=== PATIENT | female | born 1930 | race Caucasian/White ===

== ENCOUNTER → 2016-07-13 | Outpatient (CLI) | payer MEDICARE, OTHER ==
--- NOTE | 2016-07-13 15:20 | MAM ---
EXAM DESCRIPTION: MAMMO BREAST SCREENING BILATERAL CAD, images were reviewed with CAD technology, R2 computer-aided detection. CLINICAL HISTORY: [facility]. COMPARISON: 2009 and 2013. FINDINGS: Routine views are obtained. Nodular parenchymal pattern with the increased mammographic density. Patient questionnaire does not indicate any prior surgical intervention. Questioned asymmetry/ distortion right breast retroareolar 9 o'clock approximately 7 cm from the nipple. Benign calcifications are present bilaterally. Small nodular density left breast 1-2 o'clock and approximately 6 cm from the nipple.. IMPRESSION: Incomplete study. BIRAD CATEGORY: 0 INCOMPLETE RECOMMENDATIONS: FOLLOW-UP: True lateral view bilaterally with spot compression films in the true lateral and craniocaudal projections. According to the [employer], yearly mammograms are recommended starting at age 40 and continuing as long as a woman is in good health. Any breast change noted on a breast self-exam should be reported promptly to the patient's healthcare provider. Breast MRI is recommended for women with an approximately 20-25% or greater lifetime risk of breast cancer, including women with a strong family history of breast or ovarian cancer and women who have been treated for Hodgkin's disease. Electronically signed by: Na Ramos 07/13/2016 15:19
== END | disposition home or self-care (01) ==
LOC: MAMMO 09:22
PROVIDERS: ATTEND Family Medicine
DX: Z12.31 Encounter for screening mammogram for malignant neoplasm of breast (principal)
CPT/HCPCS: 77067; G0202

== ENCOUNTER → 2016-07-23 | Outpatient (CLI) | payer MEDICARE, OTHER ==
--- NOTE | 2016-07-25 20:11 | MAM ---
EXAM DESCRIPTION: MAMMO BREAST DIAGNOSTIC BILATERAL Images were reviewed with R2 computer-aided detection. CLINICAL HISTORY: Personal history of breast carcinoma status post malignant lumpectomy right breast. Mammographic asymmetry right breast 9o'clock and left breast 1 o'clock. COMPARISON: Screening evaluation 07/2016 FINDINGS: A true lateral view of the right breast with a scar marker in place indicates the region of clinical concern on the right to correspond to the prior lumpectomy. The glandular tissue is nodular in contour with no mammographically suspicious finding otherwise noted. Left breast is evaluated with true lateral and spot compression films. The with PACS system failed prior to this evaluation and evaluation performed with images reviewed at the technologist screen. The interpretation was held until the images could be reviewed with a high definition monitor, patient advised of same. The questioned nodular asymmetry on the left does not persist. The patient has a background nodular parenchymal pattern that appears grossly stable since 2014. IMPRESSION: Benign exam. Nodular parenchymal pattern which on additional evaluation does not demonstrate persistent abnormality. On the right, the radiographic changes correspond to prior lumpectomy site. BIRAD CATEGORY: 2 BENIGN RECOMMENDATION: FOLLOW-UP: Routine annual mammography. Findings and recommendations were communicated to the patient. Had the outcome been different after final review, we told the patient that we would contact her. According to the [employer], yearly mammograms are recommended starting at age 40 and continuing as long as a woman is in good health. Any breast change noted on a breast self-exam should be reported promptly to the patient's healthcare provider. Breast MRI is recommended for women with an approximately 20-25% or greater lifetime risk of breast cancer, including women with a strong family history of breast or ovarian cancer and women who have been treated for Hodgkin's disease. Electronically signed by: Na Ramos 07/25/2016 20:10
== END | disposition home or self-care (01) ==
LOC: MAMMO 15:30
PROVIDERS: ATTEND Family Medicine
DX: R92.8 Other abnormal and inconclusive findings on diagnostic imaging of breast (principal)
CPT/HCPCS: 77065; G0204

== ENCOUNTER → 2016-08-20 | Outpatient (CLI) | payer MEDICARE, OTHER | END | disposition home or self-care (01) | LOC: GMAL 11:32 | PROVIDERS: ATTEND Family Medicine | DX: E55.9 Vitamin D deficiency, unspecified (principal) ==

== ENCOUNTER → 2016-08-31 | Outpatient (CLI) | payer MEDICARE, OTHER ==
--- NOTE | 2016-08-31 14:32 | MRI ---
EXAM DESCRIPTION: Brain w/oContrast CLINICAL HISTORY: ALTERED MENTAL STATUS memory loss COMPARISON: None TECHNIQUE: Multiplanar, multi sequence MR images of the head are obtained without IV gadolinium contrast using standard imaging protocol. FINDINGS: The midline structures are not displaced. Sulci are age appropriate. The lateral, third, and fourth ventricles are normal in size, shape, and anatomic positioning. Normal goodwin-white differentiation is seen. Normal flow voids are seen in the major intracranial vessels including the dural venous sinuses. There is no evidence of mass, mass effect, hydrocephalus, or acute intracranial hemorrhage. No abnormal extra-axial fluid collections are seen. Mild scattered foci of increased FLAIR/T2 signal are seen in the periventricular white matter and white matter of the centrum semiovale. No diffusion-weighted signal abnormalities are seen. There is an area of mildly increased signal on FLAIR weighted sequences only involving the inferior left brachium pontis to cerebellopontine angle. No abnormal signal is seen in this region on other T1 or T2 weighted imaging series. Likely imaging artifact on the FLAIR sequences. The pituitary is unremarkable. There is a 14 mm fluid signal mucous retention cyst in the anterior right maxillary sinus. Small amount of fluid in the inferior right mastoid air cells is seen. The visualized orbits and mastoid air cells are unremarkable. IMPRESSION: Age-appropriate atrophy with mild old small vessel ischemic type changes are seen. No MRI evidence of acute intracranial ischemia, hemorrhage, or mass effect. Mild right mastoid effusion. Mild right maxillary subacute chronic sinus disease. Electronically signed by: Jimmy Norman MD 08/31/2016 2:31 PM CDT
== END ==
LOC: MRI 09:20
PROVIDERS: ATTEND Family Medicine
DX: R41.82 Altered mental status, unspecified (principal); J32.0 Chronic maxillary sinusitis

== ENCOUNTER → 2016-09-17 | Outpatient (CLI) | payer MEDICARE, OTHER | LOC: LAB.O 13:23 | PROVIDERS: ATTEND Psychiatry & Neurology Neurology | DX: M45.0 Ankylosing spondylitis of multiple sites in spine (principal); D86.9 Sarcoidosis, unspecified; I67.9 Cerebrovascular disease, unspecified; K50.90 Crohn's disease, unspecified, without complications; M35.1 Other overlap syndromes; M81.8 Other osteoporosis without current pathological fracture; M35.3 Polymyalgia rheumatica; M33.22 Polymyositis with myopathy; G61.81 Chronic inflammatory demyelinating polyneuritis; M54.16 Radiculopathy, lumbar region; I73.00 Raynaud's syndrome without gangrene; G25.89 Other specified extrapyramidal and movement disorders; M06.9 Rheumatoid arthritis, unspecified; M35.00 Sjogren syndrome, unspecified; M32.10 Systemic lupus erythematosus, organ or system involvement unspecified; M31.6 Other giant cell arteritis; I77.9 Disorder of arteries and arterioles, unspecified; R41.3 Other amnesia ==

== ENCOUNTER → 2016-10-13 | Outpatient (CLI) | payer MEDICARE, OTHER | END | disposition home or self-care (01) | LOC: GMAL 14:57 | PROVIDERS: ATTEND Family Medicine | DX: E03.8 Other specified hypothyroidism (principal) ==

== ENCOUNTER → 2016-11-06 | Outpatient (CLI) | payer MEDICARE, OTHER ==
--- NOTE | 2016-11-06 09:16 | CT ---
Procedure: CT ABDOMEN PELVIS WITHOUT THEN WITH IV CONTRAST Exam Date: 11/06/2016 8:27 AM CDT Ordering Provider: NATALIE KASPER Clinical Indication: GENERALIZED ABDOMINAL PAIN Comparison: None TECHNIQUE: The abdomen and pelvis were scanned utilizing a multidetector helical scanner from the diaphragm to the lesser trochanter without and with contrast. Oral contrast was given. Low osmolar IV contrast was given. Coronal and sagittal reformations were obtained. DISCUSSION: LOWER THORAX: Mild bilateral lower lobe subsegmental atelectasis is present. HEPATOBILIARY: Gallbladder surgically absent. No intrahepatic biliary ductal dilatation is present. SPLEEN: No splenomegaly. PANCREAS: No focal masses or ductal dilatation. ADRENALS: No adrenal nodules. KIDNEYS/URETERS: Subcentimeter simple cyst is seen arising from the upper pole of the right kidney. It is partially exophytic. There is mild to moderate left hydronephrosis and left hydroureter with relatively tapered and normal caliber of the mid and distal ureter. No obstructing stone is present. PELVIC ORGANS/BLADDER: The uterus appears to be partially absent. The bladder is decompressed. PERITONEUM / RETROPERITONEUM: No free air or fluid. LYMPH NODES: No lymphadenopathy. VESSELS: Unremarkable. GI TRACT: A small sliding-type hiatal hernia is present. The distal jejunal and proximal ileal loops appear to be filled with fluid and mildly prominent. There is present within the colon. There is extensive descending and sigmoid diverticulosis without evidence of diverticulitis. BONES AND SOFT TISSUES: No acute abnormality. Fat-containing ventral abdominal hernia is present. A small lipoma measuring up to 3-4 cm is seen in the right external oblique muscle. IMPRESSION: 1. Mildly fluid-filled and prominent appearance of the distal jejunum and proximal ileum. There is however presence of air within the colon. Findings may be related to partial small bowel obstruction. Recommend follow-up with serial KUBs. 2. Mild to moderate left hydroureteronephrosis with relatively normal caliber to the left mid and distal ureter. No radiopaque obstructing stone is present. Findings may be related to presence of a stricture. Consider urologic consultation. 3. Severe colonic diverticulosis without evidence of diverticulitis. 4. Prior cholecystectomy. 5. Small sliding-type hiatal hernia. 6. Other nonemergent findings, as described. Electronically signed by: Luis Zimmer MD 11/06/2016 9:15 AM CDT
== END | disposition home or self-care (01) ==
LOC: CT 08:16
PROVIDERS: ATTEND Family Medicine
DX: R10.84 Generalized abdominal pain (principal)

== ENCOUNTER → 2016-11-18 | Outpatient (CLI) | payer MEDICARE, OTHER | LOC: LAB.O 15:37 | PROVIDERS: ATTEND Urology | DX: R31.9 Hematuria, unspecified (principal) ==

== ENCOUNTER 2017-02-02 14:08 | Observation (INO) | payer MEDICARE, OTHER ==
--- NOTE | 2017-02-02 15:02 | ED.PDOC ---
History of Present Illness - General Chief Complaint: Neuro Symptoms/Deficits Stated Complaint: does not feel well Time Seen by Provider: 02/02/17 14:59 Source: patient, family Exam Limitations: no limitations - History of Present Illness Initial Comments: PT BROUGHT IN BY EMS AFTER HAVING A NEAR SYNCOPAL EPISODE AT HOME WHILE SITTING IN A CHAIR. PT HAS NO RECOLLECTION OF THE EPISODE AND ONLY COMPLAINS OF PERSISTENT ABDOMINAL PAIN AFTER BEING DIAGNOSED WITH DIVERTICULITIS LAST WEEK AND STARTED ON ANTIBIOTICS BY PCP. PTS STATES THAT PT BECAME PALE, STARTED TO SHAKE AND WOULD NOT RESPOND TO HIM. HE STATES THAT PT NEVER LOST CONSCIOUSNESS AND EYES REMAINED OPEN. Timing/Duration: 1 week Severity: moderate Improving Factors: nothing Worsening Factors: nothing Associated Symptoms: other - ABDOMINAL PAIN Allergies/Adverse Reactions: Allergies Penicillin V [From Pen-Vee-K] Allergy (Unverified 05/28/12 21:37) Home Medications: Ambulatory Orders Fenofibric Acid [Trilipix] 135 mg PO DAILY 08/06/14 Levothyroxine Sodium [Synthroid] 50 mcg PO DAILY 08/06/14 Lisinopril & Hydrochlorothiazi [Lisinopril/Hctz 20-12.5 mg] 1 tab PO BID Pantoprazole Tablet [Protonix] 40 mg PO DAILY 08/06/14 Simvastatin 40 mg PO BEDTIME 08/06/14 Aspirin [(None)] 325 mg PO DAILY 10/18/14 Cranberry (Vaccinium Macrocarp [Cranberry] 250 mg PO DAILY 10/18/14 Cyanocobalamin [Vitamin B12] 1,000 mcg PO DAILY 10/18/14 Krill Oil [Krill Oil 1000 mg] 1 cap PO DAILY 10/18/14 Multiple Minerals W/ Vitamins [Citracal Plus] 1 tab PO DAILY 10/18/14 Multiple Vitamin [Ocuvite] 1 tab PO DAILY 10/18/14 Review of Systems - Review of Systems Constitutional: Denies: chills, fever Respiratory: Denies: cough, short of breath Cardiology: Denies: chest pain, palpitations Gastrointestinal/Abdominal: States: see HPI, abdominal pain Genitourinary: Denies: discharge, dysuria Musculoskeletal: Denies: back pain, joint pain Skin: Denies: dryness, lesions Neurological: States: no symptoms reported Endocrine: States: no symptoms reported Past Medical History (General) - Patient Medical History Hx Congestive Heart Failure: No Hx Hypertension: Yes Hx Diabetes: No Hx Cancer: Yes - Breast Hx Other - free text: DIVERTICULOSIS/DIVERTICULITIS Surgical History: appendectomy, cholecystectomy, Hysterectomy - Vaccination History Hx Influenza Vaccination: No Hx Pneumococcal Vaccination: Yes - Social History Hx Tobacco Use: No Family Medical History - Family History Mother Family History: Unknown Physical Exam - Physical Exam General Appearance: Alert, Comfortable, No apparent distress Ears, Nose, Throat: hearing grossly normal, normal ENT inspection Neck: normal inspection Respiratory: lungs clear, normal breath sounds, no respiratory distress Cardiovascular/Chest: regular rate, rhythm, no murmur Gastrointestinal/Abdominal: soft, tenderness - LLQ Back Exam: normal inspection Extremity: normal inspection Neurologic: alert, normal mood/affect, oriented x 3 Skin Exam: normal color, warm/dry Progress - Progress Progress: 02/02/17 18:08 PT RESTING COMFORTABLY, NO COMPLAINT AT THIS TIME. LABS AND CT FINDINGS DISCUSSED. PT AGREES WITH PLAN TO ADMIT FOR OBSERVATION OVERNIGHT. - Results/Orders Results/Orders: 02/02/17 15:09 Sodium Chloride 0.9% (Flush) [Saline Flush Syringe] 10 ml IV PRN PRN 02/02/17 15:10 Hold Metformin x 48Hrs [id number] 02/02/17 15:15 EKG STAT Laboratory Results - last 24 hr 02/02/17 02/02/17 02/02/17 15:09 15:28 17:56 WBC 7.7 RBC 4.52 Hgb 13.5 Hct 39.7 MCV 87.8 MCH 29.9 MCHC 34.1 RDW 13.6 Plt Count 370 MPV 7.7 Absolute Neuts (auto) 5.80 Absolute Lymphs (auto) 0.90 L Absolute Monos (auto) 0.80 Absolute Eos (auto) 0.20 Absolute Basos (auto) 0.10 Neutrophils % 75.5 Lymphocytes % 11.4 L Monocytes % 10.1 H Eosinophils % 2.0 Basophils % 1.0 Sodium 132 L Potassium 3.4 L Chloride 96 L Carbon Dioxide 25 Anion Gap 14.4 BUN 17 Creatinine 1.18 BUN/Creatinine Ratio 14.4 Random Glucose 114 H Serum Osmolality 266.9 L Calcium 9.6 Total Bilirubin 0.5 Direct Bilirubin 0.2 Indirect Bilirubin 0.3 AST 33 ALT 18 Alkaline Phosphatase 41 L Serum Total Protein 7.6 Albumin 4.1 Urine Color Yellow Urine Appearance Clear Urine pH 7.0 Ur Specific Bowman 1.015 Urine Protein Negative Urine Glucose (UA) Negative Urine Ketones Negative Urine Blood Negative Urine Nitrite Negative Urine Bilirubin Negative Urine Urobilinogen 0.2 Ur Leukocyte Esterase Negative Urine RBC 0 Urine WBC 0 Ur Epithelial Cells 0 Urine Bacteria 0 - EKG/XRAY/CT EKG: Sinus - @74BPM WITH 1ST DEGREE AV BLOCK, LAFB, no ST T wave changes, Unchanged from - 08/06/2014 CT: ABDOMEN/PELVIS CT Ordered: Yes - NO EVIDENCE OF DIVERTICULITIS AT THIS TIME. Departure - Departure Clinical Impression: Abdominal pain, Near syncope Time of Disposition: 18:10 Disposition: Admit Patient Condition: Fair Departure Forms: ED Discharge - Pt. Copy, Patient Portal Self Enrollment Referrals: Russel Mariscal III, MD [Primary Care Provider] - 1-2 Weeks Home Medications: Ambulatory Orders Fenofibric Acid [Trilipix] 135 mg PO DAILY 08/06/14 Levothyroxine Sodium [Synthroid] 50 mcg PO DAILY 08/06/14 Lisinopril & Hydrochlorothiazi [Lisinopril/Hctz 20-12.5 mg] 1 tab PO BID Pantoprazole Tablet [Protonix] 40 mg PO DAILY 08/06/14 Simvastatin 40 mg PO BEDTIME 08/06/14 Aspirin [(None)] 325 mg PO DAILY 10/18/14 Cranberry (Vaccinium Macrocarp [Cranberry] 250 mg PO DAILY 10/18/14 Cyanocobalamin [Vitamin B12] 1,000 mcg PO DAILY 10/18/14 Krill Oil [Krill Oil 1000 mg] 1 cap PO DAILY 10/18/14 Multiple Minerals W/ Vitamins [Citracal Plus] 1 tab PO DAILY 10/18/14 Multiple Vitamin [Ocuvite] 1 tab PO DAILY 10/18/14 Decision To Admit - Decistion To Admit Decision to Admit Reason: Admit from ER - NEAR SYNCOPE, ABDOMINAL PAIN Decision to Admit Date: 02/02/17 Decision to Admit Time: 18:13
[2017-02-02] MEDS ORDERED: ONDANSETRON INJ 4 MG/2 ML VIAL IV ONE (15:09)
[2017-02-02] MEDS ORDERED: SODIUM CHLORIDE 0.9% (FLUSH) 10 ML SYG IV PRN ×2 (15:09→18:51)
[2017-02-02] MEDS ORDERED: SODIUM CHLORIDE 0.9% 1000ML 1,000 ML IVS ONE (15:09)
[2017-02-02] MEDS ORDERED: MORPHINE SULFATE INJ 10 MG/ML VIAL IV ONE (15:11)
--- NOTE | 2017-02-02 16:56 | CT ---
EXAM DESCRIPTION: Abdomen/Pelvis w/Contrast CLINICAL HISTORY: 86 years Female, LLQ ABD PAIN, RECENT DIVERTICULITIS COMPARISON: 06 November 2016 TECHNIQUE: Transaxial images were obtained during injector administered intravenous contrast media and without oral contrast media. Sagittal and coronal reconstruction was performed.This exam was performed according to our departmental dose-optimization program, which includes automated exposure control, adjustment of the mA and/or kV according to patient size and/or use of iterative reconstruction technique. FINDINGS: The lung bases are clear. The liver and spleen are normal in appearance. No biliary ductal dilatation is observed. The gallbladder is been previously removed. Surgical clips are seen in the region of the gallbladder fossa. A small hiatus hernia is observed. No adrenal masses are detected. The pancreas is normal in appearance. Imaging of the kidneys reveals no evidence of hydronephrosis mass or calcification. Simple cysts are detected in the right kidney. Diverticulosis of the sigmoid colon is observed without evidence of diverticulitis. The patient is post hysterectomy. Mild degenerative changes are observed in the lumbar spine. IMPRESSION: 1. Cholecystectomy. 2. Small hiatus hernia. 3. Uncomplicated diverticulosis of the colon. 4. Hysterectomy Electronically signed by: Russel Rosario MD 02/02/2017 4:54 PM CDT
--- NOTE | 2017-02-02 18:35 | HP ---
SUPERVISING PHYSICIAN: Junior Gonzalez MD CHIEF COMPLAINT: Possible seizure. HISTORY OF PRESENT ILLNESS: Ms. Womack is an 86-year-old, female patient that was brought to the Emergency Room by EMS after she had apparently a near syncopal episode at home while sitting in a chair. The patient notes she has full memory of the episode and the only complaint at time of admission to the Emergency Department was some abdominal pain. Of note is that she is being treated currently with antibiotics for diverticulitis to include Levaquin and Flagyl. The patient notes that her abdominal pain is no different than it has been in the past and she feels that she did not have any seizure, just had a mild episode of weakness. The patient's notes that the patient apparently became very pale, started to shake and would not respond to him. He also notes that the patient never lost consciousness and her eyes remained open during the entire episode. On presentation to the Emergency Room, laboratory studies completed showed she had a normal white count with normal differential with chemistries showing a mild hyponatremia with sodium 132 and mild hypokalemia with potassium 3.4. Glucose was 114. Urinalysis was also within normal limits. She then had an CT of the abdomen and pelvis given the abdominal pain which she notes is in the left lower quadrant and, again, is not a significant change from previous weeks and per radiologic interpretation, there was note that she had uncomplicated diverticulosis of the colon, but no evidence of diverticulitis. Dr. Sherwood, Emergency Room physician, requested that the patient be admitted and placed in observation at least for further evaluation given the questionable seizure activity and close monitoring of neurologic status. The patient was placed in observation in stable condition. PAST MEDICAL HISTORY: 1. Hyperlipidemia. 2. Hypertension. 3. Diverticulosis noted by colonoscopy of the descending and sigmoid colon, followed by Dr. Queen. 4. Left lower leg fracture in 2005. 5. Osteopenia. 6. Hypothyroidism on supplementation. 7. History of infiltrating lobular breast carcinoma with the patient having completed radiation therapy as well as excision of the right breast. PAST SURGICAL HISTORY: 1. Appendectomy. 2. Complete hysterectomy. 3. Excision of right breast for invasive lobular carcinoma in 2006. 4. Right knee arthroscopy with right knee arthroplasty in [address] Viera. 5. 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 6. times 2. 7. Last colonoscopy noted to be in [address] Queen with multiple small and large mouth diverticula, rectosigmoid. 8. Echocardiogram in October of 2016 with ejection fraction of 60% with a grade 1 diastolic dysfunction. 9. Cholecystectomy. HOME MEDICATIONS: 1. Metamucil powder pack 1 at bedtime. 2. Aspirin 81 mg daily. 3. Cranberry capsules 250 mg daily. 4. Trilipix 135 mg every other day. 5. Ocuvite 1 tablet daily. 6. Lisinopril/hydrochlorothiazide 20-12.5 mg 1 tablet b.i.d. 7. Synthroid 50 mcg daily. 8. Simvastatin 40 mg at bedtime. 9. Protonix 40 mg daily. ALLERGIES: PENICILLIN, ADHESIVE TAPE, BENZINE, CIPROFLOXACIN. FAMILY HISTORY: Father at age 60 secondary to prostate cancer. Mother at age 99 secondary to advanced age. SOCIAL HISTORY: The patient is retired [employer]. She has four children. She is and lives in [place], [place]. She has never smoked. She does admit that she consumes hard liquor on a daily basis. REVIEW OF SYSTEMS: CONSTITUTIONAL: Denies any fevers, chills, or fatigue, but does note she does not feel well. HEENT: She does note that she has frequent headaches. Denies visual changes, earaches, sore throat. RESPIRATORY: Denies cough, shortness of breath. CARDIOVASCULAR: Denies chest pain or palpitations, but possible near syncopal episode as noted in history of present illness. GASTROINTESTINAL: As noted in history of present illness, left lower quadrant pain which apparently is chronic, currently under treatment by Dr. Mariscal with antibiotics including Levaquin and Flagyl as well as followed by Dr. Queen. GENITOURINARY: Denies discharge, dysuria, hematuria or other urinary symptoms. NEUROLOGIC: As noted in history of present illness, but denies any actual seizure activity, loss of consciousness, any focal weaknesses or sensory deficits. PHYSICAL EXAMINATION: VITAL SIGNS: Temperature 97.3. Pulse 88. Blood pressure 157/83. Respirations 18. O2 saturation 98% on room air. Admission weight 100.9 kg. GENERAL: The patient appears to be comfortable and in no acute distress on admission to the Medical/Surgical Floor. She is alert and oriented times three. HEENT: Tympanic membranes clear bilaterally. Oropharynx is pink, moist without any lesions. NECK: No jugular venous distention noted. Supple with full range of motion. CHEST: Lungs clear to auscultation bilaterally without any rhonchi, wheezes, or rales. CARDIOVASCULAR: Regular rate and rhythm without any appreciable murmurs, gallops, or rubs. ABDOMEN: Soft with notable tenderness to the left lower quadrant on deep palpation. No rebound tenderness. EXTREMITIES: There is no cyanosis, clubbing or edema. NEUROLOGIC: The patient is alert and oriented times three. Facial features are symmetrical. Extraocular movements are within normal limits. There is no nystagmus noted. No ataxia was noted. No sensory or motor deficits were appreciated. LABORATORY: CBC showed normal white count of 7.2, hemoglobin 13.5, hematocrit 39.7, platelet count 370,000, differential within normal limits. Chemistries showed hyponatremia at 132, hypokalemia at 3.4 with BUN 17, creatinine 1.18, glucose 114. Liver functions within normal limits. Urinalysis within normal limits. RADIOLOGY: CT of the abdomen and pelvis with contrast per radiologic interpretation showed note of small hiatal hernia, uncomplicated diverticulosis of the colon without any diverticulitis noted. ASSESSMENT: 1. Possible presyncopal episode with questionable seizure activity with the patient reporting no loss of consciousness and no history of seizure activity. 2. Chronic left lower quadrant abdominal pain secondary to diverticulosis with no evidence of acute diverticulitis on CT scan with the patient currently being treated with Levaquin and Flagyl, 10 day course, currently on day 6. 3. Hypertension. 4. Hyperlipidemia. 5. Hypothyroidism. 6. History of previous right breast cancer with excision of right breast. 7. Electrolyte imbalance with mild hyponatremia and hypokalemia. PLAN: The patient will be placed in observation. She was given some saline in the Emergency Department and this will be continued in efforts to correct the hyponatremia along with IV potassium. We will plan to recheck laboratory studies in the morning. She will be on seizure precautions with frequent neuro checks. She will be on DVT prophylaxis per protocol. We will resume her home medications once they have been updated and verified in the medical records. I have scheduled her for a carotid Doppler study. We will plan to repeat abdominal x-ray in the morning. Her diet will include clear liquids. I will touch base with Dr. Mariscal in the morning in regards to the diverticulosis treatment as she being followed by Dr. Mariscal and Dr. Queen and this appears to be a chronic issue. We will anticipate length of stay to be one to two days with possible discharge tomorrow once clinically stable. Until then, we will continue to monitor the patient closely and treat appropriately. #[id number] [facility]
[2017-02-02] MEDS ORDERED: ONDANSETRON INJ 4 MG/2 ML VIAL IV PRN (18:51)
[2017-02-02] MEDS ORDERED: IV SET AND CAP CHANGE INJ INJ SCH (19:00)
[2017-02-02] MEDS ORDERED: MORPHINE SULFATE INJ 10 MG/ML VIAL IV PRN (21:47)
[2017-02-02] MEDS ORDERED: metroNIDAZOLE IV PREMIX 500MG 100 ML IVPB ONE (22:02)
[2017-02-02] MEDS: KCL 40MEQ/NS 1,000 ML IVS PRN (22:05)
[2017-02-02] MEDS: metroNIDAZOLE IV PREMIX 500MG 500 MG in PREMIX BAG 1 BAG IVPB SCH (22:06)
[2017-02-03] MEDS ORDERED: metroNIDAZOLE IV PREMIX 500MG 100 ML IVPB ONE ×3 (05:42→20:45)
[2017-02-03] MEDS: metroNIDAZOLE IV PREMIX 500MG 500 MG in PREMIX BAG 1 BAG IVPB SCH ×3 (05:44→21:08)
--- NOTE | 2017-02-03 07:51 | RAD ---
Abdomen two views INDICATION: Left lower quadrant pain COMPARISON: October 30, 2014 IMPRESSION: Mild scarring in the lung bases. No evidence of free air. Gallbladder clips right upper quadrant. Slightly dilated small bowel loops in the mid and left lower abdomen nonspecific. Possible localized ileus, enteritis or very low-grade obstruction. Bowel gas is present to the rectum. No definite pneumatosis. Electronically signed by: Cory Ruiz MD 02/03/2017 7:49 AM CDT
[2017-02-03] MEDS ORDERED: MULTIPLE VITAMIN 1 EA TAB PO ONE (07:55)
[2017-02-03] MEDS ORDERED: PANTOPRAZOLE SODIUM TAB 40 MG PO ONE (07:56)
[2017-02-03] MEDS ORDERED: levoFLOXacin 500MG IV 100 ML IVPB ONE (07:56)
[2017-02-03] MEDS ORDERED: hydroCHLOROthiazide 12.5 MG CAP ONE (07:56)
[2017-02-03] MEDS ORDERED: LEVOTHYROXINE SODIUM 0.025 MG TAB ONE (07:58)
[2017-02-03] MEDS: PANTOPRAZOLE SODIUM TAB 40 MG PO SCH (08:35)
[2017-02-03] MEDS: LEVOTHYROXINE SODIUM 0.025 MG TAB PO SCH (08:36)
[2017-02-03] MEDS: hydroCHLOROthiazide 12.5 MG CAP PO SCH ×2 (08:36→21:06)
[2017-02-03] MEDS: MULTIPLE VITAMIN 1 EA TAB PO SCH (08:40)
[2017-02-03] MEDS: LISINOPRIL 10 MG TAB PO SCH ×2 (08:40→21:06)
[2017-02-03] MEDS ORDERED: levoFLOXacin 500MG IV 500 MG in PREMIX BAG 1 BAG IVPB SCH (09:00)
[2017-02-03] MEDS ORDERED: NON-FORMULARY MEDICATION 1 EA MIS (Lisinopril & Hydrochlorothiazi [Lisinopril/Hctz 20-12.5 PO SCH (09:00)
--- NOTE | 2017-02-03 11:35 | PCM.CORE ---
Physician DVT/VTE - Nurse DVT Assessment & Total Each Risk Factor Represents 3 Points: Age over 75 years Each Risk Factor Represents 1 Point: Medical PT at Bed Rest Each Risk Factor is 1 Point: Obesity (BMI >25) DVT Assessment Score: 5 - 5 or more Very High Risk Treatments: Early Ambulation *, Sequential Compression Device Pharmacological: Enoxaparin 40mg SQ Daily
--- NOTE | 2017-02-03 12:03 | CT ---
EXAM DESCRIPTION: Head CT without contrast CLINICAL HISTORY: Seizure COMPARISON: MRI brain 08/31/2016 TECHNIQUE: Noncontrast spiral CT of the brain. This exam was performed according to our departmental dose-optimization program, which includes automated exposure control, adjustment of the mA and/or kV according to patient size and/or use of iterative reconstruction technique FINDINGS: No intracranial hemorrhage, infarction or mass lesion. Normal goodwin-white matter differentiation Ventricles are normal in size and configuration. Atherosclerotic vascular calcifications No calvarial or skullbase fracture. No fluid in the paranasal sinuses or mastoid air cells IMPRESSION: Negative noncontrast head CT CT is insensitive for early evaluation of acute stroke. If there is clinical concern for acute ischemia, an MRI may be considered. Electronically signed by: Junior Collazo MD 02/03/2017 12:02 PM CDT
[2017-02-03] MEDS: KCL 40MEQ/NS 1,000 ML IVS PRN (12:31)
[2017-02-03] MEDS ORDERED: MAGNESIUM HYDROXIDE 30 ML UD PO ONE (13:43)
--- NOTE | 2017-02-03 14:07 | CONS ---
DATE OF CONSULTATION: 02/03/17 REFERRING PHYSICIAN: [facility] service, Dr. Gonzalez and Blayne Dobson. HISTORY OF PRESENT ILLNESS: The patient is an 86-year-old female who was admitted after a possible seizure. At the time of admission, the patient did complain of left lower quadrant pain and has a history of diverticulitis. I was asked to help evaluate for this pain. The patient states she had a problem getting up and that her said she would not respond and had some shaking. She did not have urinary incontinence. PAST MEDICAL HISTORY: 1. Hypertension. 2. Hyperlipidemia. 3. She broke her left leg in 2005. PAST SURGICAL HISTORY: 1. Right mastectomy. 2. Hysterectomy. 3. Appendectomy. 4. Hypothyroidism. 5. Right knee arthroscopy. 6. History of skin cancers. 7. Cholecystectomy. 8. C-sections times . 9. Last colonoscopy was in 2007. CURRENT MEDICATIONS: 1. Metamucil. 2. Aspirin. 3. Cranberry. 4. Trilipix. 5. Ocuvite. 6. Lisinopril/hydrochlorothiazide. 7. Synthroid. 8. Simvastatin. 9. Protonix. ALLERGIES: CIPRO, BENZINE, ADHESIVE TAPE, PENICILLIN. FAMILY HISTORY: Positive for prostate cancer. SOCIAL HISTORY: The patient is retired, mother of four children. She does not smoke, but does drink on a routine basis. REVIEW OF SYSTEMS: Essentially unremarkable. There has been no chest pain or palpitations, but did have the weak episode prior to admission. She does have chronic left lower quadrant pain, but no fever, chills, change in bowel habits. PHYSICAL EXAMINATION: GENERAL: The patient is currently awake, alert, and in mild distress. VITAL SIGNS: The patient is currently afebrile. Blood pressure is somewhat elevated at 153/83. Pulse 70 to 80. Respiratory rate 16. I&Os show good urine output and the patient states she had a stool this morning. LABORATORY: White count 5.6, 62% neutrophils, hemoglobin 12.4, platelet count 335,000. Electrolytes reveal potassium 4, creatinine 0.87. Liver functions within normal limits. Calcium 8.8, blood sugar 102 this morning. Abdominal x- ray is essentially unremarkable. ASSESSMENT: 1. Diverticulosis with probably some obstipation. This could be the cause of the discomfort. 2. Other chronic health issues. 3. Rule out neurologic event. RECOMMENDATION: My recommendation is to give the patient a large dose of Milk of Magnesia, repeat her x-rays in the morning and increase her activity by at least sitting up in the chair. [facility][id number]
--- NOTE | 2017-02-03 14:14 | US ---
EXAM DESCRIPTION: Carotid Duplex CLINICAL HISTORY: near syncopal seizure COMPARISON: None Available. TECHNIQUE: Color Doppler evaluation of the extracranial carotids FINDINGS: Right carotid: Tortuosity of the right common carotid artery seen. There is mild smooth partly calcified plaque of the carotid bulb. Peak systolic velocity common carotid artery = 77 cm/s Peak systolic velocity internal carotid artery = 75 cm/s Peak systolic velocity external carotid artery = 75 cm/s ICA CCA ratio 1.0 Left carotid: Tortuosity of the left common carotid artery is seen. There is mild smooth partly calcified plaque in the left carotid bulb. Peak systolic velocity common carotid artery = 58 cm/s Peak systolic velocity internal carotid artery = 68 cm/s Peak systolic velocity external carotid artery = 81 cm/s ICA CCA ratio 1.0 Antegrade flow is seen in both vertebral arteries Normal flow velocities and waveforms are demonstrated bilaterally. 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 Velocities and ratios suggest less than 39% stenosis of the internal carotid artery bilaterally. Electronically signed by: Jimmy Norman MD 02/03/2017 2:13 PM CDT
[2017-02-03] MEDS: ENOXAPARIN SODIUM 40 MG/0.4 ML SYG SUBCU SCH (14:41)
--- NOTE | 2017-02-03 18:17 | PN ---
DATE: 02/03/17 SUPERVISING PHYSICIAN: Junior Gonzalez M.D. SUBJECTIVE: The patient has not had any episodes of seizure activity or any other syncopal type episodes through the night. She remains afebrile. She says her abdominal pain has lessened somewhat since admission. She has had no nausea. She has been tolerating a clear liquid diet. OBJECTIVE: VITAL SIGNS: T max 98.5, pulse 71, blood pressure 153/83, respirations 16, satting 95% on room air. I's and O's show a positive balance of 300 with 1600 in, 1300 out. Weight is 100.97 kg. CHEST: Lungs are clear to auscultation. HEART: regular rate and rhythm. ABDOMEN: Obese, soft with some continued tenderness towards the left lower quadrant. No rebound tenderness. The patient reports is less in intensity compared to admission. EXTREMITIES: No clubbing, cyanosis or edema. NEUROLOGIC: She is alert and oriented times three. LABORATORY: White count remains within normal limits at 5.6. Hemoglobin 12.4, hematocrit 36.2, platelet count 335,000. Differential is within normal limits. Chemistries show continued hyponatremia with sodium 133, potassium has normalized now at 4.0, BUN 12, creatinine 0.87, blood sugar 102, calcium 8.8. Liver functions remain within normal limits. No microbiology specimens submitted for culture. RADIOLOGY: She had a carotid artery study done this morning and per radiology interpretation there is mild atherosclerotic disease in bilateral carotid bulbs with velocities and ratios to suggest less than 39% stenosis of the internal carotid arteries bilaterally. She also had a head CT without contrast and per radiology interpretation showed a negative contrast head CT. She also had a repeat abdominal x-ray and per radiology interpretation once again there was note of possible localized ileus, enteritis or very low grade obstruction with bowel gas present within the rectum, but no definite pneumatosis. ASSESSMENT: 1. Questionable presyncopal episode versus seizure activity with no reported loss of consciousness prior to admission with the patient having no history of seizure activity and no further neurological changes noted through the night with CT studies and carotid studies showing no significant acute findings. 2. Continued left quadrant abdominal pain with history of diverticulosis likely secondary to obstipation with the patient currently has been treated for diverticulitis with antibiotics to include Levaquin and Flagyl with the patient being on day 7 of antibiotic therapy. 3. Hypertension. 4. Hyperlipidemia. 5. Hypothyroidism. 6. History of previous right breast cancer with excision of the right breast. 7. Electrolytes imbalance with a persistent mild hyponatremia despite fluid replacement. The patient is taking Hydrochlorothiazide which is likely the etiology of the hyponatremia and resolved hypokalemia after fluid replacement. PLAN: The patient was seen in consultation by Dr. Souza with recommendations to give the patient Milk of Magnesia and repeat abdominal x-ray in the morning, and increase activity at least sitting up to the chair. She remains on a clear liquid diet. She has had no seizure activity, therefore will stop seizure precautions. Continue to monitor closely. Anticipate discharge tomorrow hopefully after further evaluation by Dr. Souza as well as repeat abdominal films. Will plan to repeat a BNP in the morning. Continue with IV fluids in efforts to normalize sodium levels, although it is noted that the patient is on Hydrochlorothiazide which is likely the etiology of the hyponatremia. Will anticipate discharge later tomorrow after further assessment. Until then, continue to monitor closely and treat appropriately. #[id number] [facility]
[2017-02-03] MEDS ORDERED: PSYLLIUM PO SCH (21:00)
[2017-02-03] MEDS ORDERED: ASPIRIN EC 81 MG TAB PO SCH (21:00)
[2017-02-03] MEDS: SIMVASTATIN 20 MG TAB PO SCH ×2 (21:00→21:06)
[2017-02-04] MEDS: KCL 40MEQ/NS 1,000 ML IVS PRN (00:50)
[2017-02-04 06:33] VITALS: TEMP 97
[2017-02-04] MEDS: PANTOPRAZOLE SODIUM TAB 40 MG PO SCH (06:38)
[2017-02-04] MEDS: LEVOTHYROXINE SODIUM 0.025 MG TAB PO SCH (06:38)
--- NOTE | 2017-02-04 07:17 | RAD ---
EXAM DESCRIPTION: Abdomen Flat Upright CLINICAL HISTORY: 86 yearsFemale, fu llq abdominal pain COMPARISON: 02/03/2017 IMPRESSION: Mild linear atelectasis or scarring again demonstrated in the lung bases. There is no intraperitoneal free air below the hemidiaphragms. There is a nonspecific bowel gas pattern. Several air-filled loops of small bowel are demonstrated in the midabdomen which measure up to 2.5 cm in diameter. There is increased gas in the colon on today's exam, with gas-filled descending colon and rectosigmoid colon. No air-fluid levels. Multilevel degenerative changes in the lumbar spine and in both hips. The bones are demineralized. Cholecystectomy clips. Electronically signed by: Gamal Aburto MD 02/04/2017 7:16 AM CDT Workstation: [id number]
[2017-02-04] MEDS: MULTIPLE VITAMIN 1 EA TAB PO SCH (08:46)
[2017-02-04] MEDS: LISINOPRIL 10 MG TAB PO SCH (08:47)
[2017-02-04] MEDS: hydroCHLOROthiazide 12.5 MG CAP PO SCH (08:47)
[2017-02-04] MEDS ORDERED: FENOFIBRIC ACID 135 MG CAP PO SCH (09:00)
[2017-02-04] MEDS ORDERED: SIMVASTATIN 20 MG TAB PO SCH (09:00)
[2017-02-04 10:08] VITALS: BP 172/90; O2SAT 96
[2017-02-04] MEDS ORDERED: SODIUM CHLORIDE 0.9% (FLUSH) 10 ML SYG IV SCH (10:30)
[2017-02-04] MEDS: ENOXAPARIN SODIUM 40 MG/0.4 ML SYG SUBCU SCH (11:31)
[2017-02-04] MEDS ORDERED: MAGNESIUM HYDROXIDE 30 ML UD PO ONE (12:30)
--- NOTE | 2017-02-04 13:29 | DS ---
DISCHARGE DIAGNOSIS: 1. Initial altered level of consciousness showing steady improvement with no specific etiology, possibly a presyncopal episode, either vasovagal and no evidence of seizure disorder at this time. 2. Abdominal pain, primarily left lower quadrant, at this time showing some clinical improvement as fecal impaction was treated, yet requiring further evaluation and stabilization in the outpatient clinic. 3. History of hypertension. 4. History of hyperlipidemia. 5. History of hypothyroidism. 6. History of right breast cancer with excision of the right breast. 7. History of hyponatremia, possibly related to polydipsia with subsequent diminished osmolality and blood dilution with the patient also on hydrochlorothiazide, which could contribute significantly. HISTORY OF PRESENT ILLNESS: This 86-year-old, white female was admitted to the hospital from the Emergency Room after a spell of altered level of consciousness noted by her . She had had some abdominal discomfort as well and has recently been on antibiotics for diverticular involvement with Levaquin and Flagyl. She never lost consciousness with her eyes remaining open and she remembers it, but was having difficulty in her ability to respond to questions initially. This eventually returned fairly quickly back to a normal level of attention and responsivity. In the Emergency Room, she was found to have a sodium of 132 and this was of concern even during her hospital stay. The patient was placed in the hospital for continued observation. She has had a history of diverticulosis and has been followed with colonoscopy by Dr. Queen in the past. LABORATORY: Her white count stayed normal during the hospital stay and hemoglobin stabilized at 12.4. Chemistries showed her sodium is 132 and was down to 131 at discharge while potassium with supplementation was up from 3.4 to 4.0. BUN was normal. Creatinine 0.8, glucose 96 on discharge and osmolality showed diminishment from 267 to 260.5. Liver enzymes were generally unremarkable. Albumin 3.7. Urinalysis generally clean. No cultures. RADIOLOGY: Abdominopelvic CT scan showed cholecystectomy with small hiatal hernia, diverticulosis and history of hysterectomy. Because of her altered level of consciousness, carotid ultrasounds were performed and showed some atherosclerotic disease with evidence of a 39% stenosis of the internal carotid arteries bilaterally and requiring ongoing followup. Head CT was performed and was generally unremarkable. Abdominal x-ray showed some nonspecific gas patterns. HOSPITAL COURSE: The patient was feeling much improved on the morning of discharge after being advanced from liquids to a mechanical soft diet which was well tolerated. She is going to continue to work on trying to prevent constipation which may have contributed to some of her abdominal pain by taking the MiraLAX as well as an needed weekly Milk of Magnesia. Followup with Dr. Mariscal in the next one or two weeks. Because of her low sodium, we will suggest trying the decrease the amount of fluids she drinks to less than 2 quarts per day with her having a history of drinking over 4 quarts per day. She can have extra salt in her food. She will continue with her hydrochlorothiazide after discussing with Dr. Mariscal, but will have continued followup with the electrolytes in the future. She may decrease her Zocor to 20 mg a day and recheck her cholesterol in a few months. Return if not improving. [facility][id number] [facility]
== END 2017-02-04 13:59 | disposition home or self-care (01) ==
LOC: ER 14:08 → MS 18:34 → INTOOBSV 18:34
PROVIDERS: ADMIT Nurse Practitioner Family; ATTEND Emergency Medicine
DX: E87.1 Hypo-osmolality and hyponatremia (principal); E87.6 Hypokalemia; R40.4 Transient alteration of awareness; K57.30 Diverticulosis of large intestine without perforation or abscess without bleeding; K56.41 Fecal impaction; T50.2X5A Adverse effect of carbonic-anhydrase inhibitors, benzothiadiazides and other diuretics, initial encounter; I10 Essential (primary) hypertension; E78.5 Hyperlipidemia, unspecified; E03.9 Hypothyroidism, unspecified; M85.80 Other specified disorders of bone density and structure, unspecified site; K44.9 Diaphragmatic hernia without obstruction or gangrene; I44.0 Atrioventricular block, first degree; Z79.82 Long term (current) use of aspirin; Z79.899 Other long term (current) drug therapy; Z88.0 Allergy status to penicillin; Z88.1 Allergy status to other antibiotic agents; Z88.8 Allergy status to other drugs, medicaments and biological substances; Z91.048 Other nonmedicinal substance allergy status; Z85.3 Personal history of malignant neoplasm of breast; Z90.11 Acquired absence of right breast and nipple; Z92.3 Personal history of irradiation; Z85.828 Personal history of other malignant neoplasm of skin; Z96.651 Presence of right artificial knee joint; Z90.49 Acquired absence of other specified parts of digestive tract; Z90.710 Acquired absence of both cervix and uterus; Z80.42 Family history of malignant neoplasm of prostate; Y92.9 Unspecified place or not applicable
CPT/HCPCS: 36415 ×3; 70450; 74010 ×2; 74177; 80048 ×2; 80053; 80076; 81001 ×2; 85025 ×2; 93005; 93880; 94760 ×4; 96361; 96365; 96366 ×3; 96367 ×2; 96372 ×2; 96375; 96376; 97116; 97162; 99284; G0378; G8978; G8979; G8980; J1650 ×2; J1956; J2270; J2405; J3480 ×3; J3490 ×4; J7030

== ENCOUNTER → 2017-05-18 | Outpatient (CLI) | payer MEDICARE, OTHER | END | disposition home or self-care (01) | LOC: GMAL 10:41 | PROVIDERS: ATTEND Family Medicine | DX: D51.3 Other dietary vitamin B12 deficiency anemia (principal); E55.9 Vitamin D deficiency, unspecified ==

== ENCOUNTER → 2017-05-25 | Outpatient (CLI) | payer MEDICARE, OTHER | END | disposition home or self-care (01) | LOC: GMAL 11:33 | PROVIDERS: ATTEND Family Medicine | DX: N30.00 Acute cystitis without hematuria (principal) ==

== ENCOUNTER → 2017-08-04 | Outpatient (CLI) | payer MEDICARE, OTHER ==
--- NOTE | 2017-08-09 09:31 | MAM ---
EXAM DESCRIPTION: 3D Screening BILATERAL : Digital Mammography. CLINICAL HISTORY: 87 years Female SCREENING . Right breast cancer with lumpectomy and radiation therapy. Postmenopausal. HRT 5 or more years ago. COMPARISON: 2-D digital screening bilateral studies on 08/10/2016 and 07/10/2015. Reports from prior examinations also reviewed. TECHNIQUE: Bilateral CC and MLO projection full-field images, 3-D tomosynthesis digital mammographic technique. Also bilateral synthesized CC/ MLO full-field images. CAD not utilized. FINDINGS: The breast parenchymal density pattern is: Heterogeneously dense breast tissue, which may obscure small masses. No skin thickening or nipple retraction architectural distortion secondary to biopsy lumpectomy and radiation therapy in the middle third of the lateral right breast, multiple punctate and linear calcifications bilaterally as well as ductal calcifications more numerous anteriorly. Also bilateral vascular calcifications. Focal asymmetry with calcifications middle third left breast at the 300 clock position approximately 6 cm from the nipple.. Cluster of small heterogeneous calcifications associated with linear calcifications and possible soft tissue mass, in the retroareolar right breast at the 230 clock position, 2 cm from the nipple IMPRESSION: BI-RADS CATEGORY: 0 - INCOMPLETE- Need additional imaging evaluation. FOLLOW-UP: Recall for additional imaging: Bilateral LM full-field 3-D tomosynthesis. Retroareolar right breast CC and LM magnification images. Targeted bilateral breast ultrasound. Written communication concerning the IMPRESSION and Follow-up, will be mailed to the patient and referring health care provider. Electronically signed by: Alfred Jones MD 08/09/2017 9:30 AM [employer]
== END ==
LOC: MAMMO 09:30
PROVIDERS: ATTEND Family Medicine
DX: Z12.31 Encounter for screening mammogram for malignant neoplasm of breast (principal)

== ENCOUNTER → 2017-08-25 | Outpatient (CLI) | payer MEDICARE, OTHER ==
--- NOTE | 2017-08-25 13:52 | MAM ---
EXAM DESCRIPTION: 3D Diagnostic, Bilateral: Digital Mammography CLINICAL HISTORY: 87 yearsFemaleABNORMAL MAMMOGRAM possible abnormal calcifications in and soft tissue mass medial to the right retroareolar tissues. Focal asymmetry upper outer quadrant middle third left breast. Lumpectomy and radiation therapy for breast cancer right breast. COMPARISON: 3-D tomosynthesis bilateral screening mammography 08/04/2017. Bilateral targeted breast ultrasound following this examination. Report from prior examination also reviewed. TECHNIQUE: Bilateral LM projection full-field images, 3-D tomosynthesis digital mammographic technique. Also bilateral synthesized LM full-field images. Retroareolar magnification images right breast CC and LM projections. CAD for magnification images. FINDINGS: The breast parenchymal density pattern is: Heterogeneously dense breast tissue, which may obscure small masses. No skin thickening or nipple retraction bilateral solitary and grouped microcalcifications, bilateral linear calcifications. Scarring and skin thickening with a skin marker in the right breast, anterior lower outer quadrant, at prior lumpectomy and radiation site. Also bilateral vascular calcifications. Ultrasound: Scanning at the 300 clock position of the right breast 3 cm from the nipple. Mostly fatty homogeneous tissue. Well-circumscribed hypoechoic object with no posterior acoustic features and parallel orientation measuring 6.5 x 3.9 mm. No significant vascularity but most likely a lymph node. No discrete cyst, calcifications or parenchymal edema. No skin changes. Scanning at the 300 clock position of the left breast 5 to 6 cm from the nipple. Scanning also at the 100 clock position, same distance from the nipple: These images were not recorded. Heterogeneous fibroglandular tissues interspersed with fatty tissues. Variable areas with posterior acoustic shadowing but not masslike. Not vascular. No discrete solid mass or cyst. No large calcifications or parenchymal edema. No skin changes. IMPRESSION: BI-RADS CATEGORY: 3 - PROBABLY BENIGN. Management: Short interval (6-month) follow-up bilateral breasts and left breast targeted ultrasound. The FINDINGS and the FOLLOW-UP plan were reviewed in person with the patient after the examination. Written communication explaining the IMPRESSION and FOLLOW-UP will be mailed to the patient and referring care provider. Electronically signed by: Alfred Jones MD 08/25/2017 1:49 PM CDT
--- NOTE | 2017-08-25 13:53 | US ---
EXAM DESCRIPTION: Breast,Bilateral: Ultrasound CLINICAL HISTORY: 87 yearsFemaleABNORMAL MAMMO. Previous right breast cancer with lumpectomy and radiation treatment. Possible abnormal calcifications and mass right breast and focal asymmetry left breast. COMPARISON: Digital diagnostic 3-D tomosynthesis mammography bilateral breast 08/04/2017. Diagnostic bilateral 3-D mammography on this visit. TECHNIQUE: Transcutaneous scanning of the bilateral breast utilizing two-dimensional and Doppler modes. Scanning performed by the database design analyst and Dr. Jones. FINDINGS: Scanning at the 300 clock position of the right breast 3 cm from the nipple. Mostly fatty homogeneous tissue. Well-circumscribed hypoechoic object with no posterior acoustic features and parallel orientation measuring 6.5 x 3.9 mm. No significant vascularity but most likely a lymph node. No discrete cyst, calcifications or parenchymal edema. No skin changes. Scanning at the 300 clock position of the left breast 5 to 6 cm from the nipple. Scanning also at the 100 clock position, same distance from the nipple: These images were not recorded. Heterogeneous fibroglandular tissues interspersed with fatty tissues. Variable areas with posterior acoustic shadowing but not masslike. Not vascular. No discrete solid mass or cyst. No large calcifications or parenchymal edema. No skin changes. IMPRESSION: 1. Bi-Rads Category 3: Probably Benign Findings. 2. Please refer to bilateral 3-D tomosynthesis diagnostic mammographic examination and report on this visit. The FINDINGS and the FOLLOW-UP plan were reviewed in person with the patient after the examination. Written communication explaining the IMPRESSION and FOLLOW-UP will be mailed to the patient and referring care provider. Electronically signed by: Alfred Jones MD 08/25/2017 1:51 PM CDT
== END ==
LOC: MAMMO 10:30
PROVIDERS: ATTEND Family Medicine
DX: R92.8 Other abnormal and inconclusive findings on diagnostic imaging of breast (principal)
CPT/HCPCS: 76641; 77066; G0279

== ENCOUNTER → 2017-11-17 | Outpatient (CLI) | payer MEDICARE, OTHER | LOC: GMAL 11:20 | PROVIDERS: ATTEND Family Medicine | DX: E03.9 Hypothyroidism, unspecified (principal) ==

== ENCOUNTER → 2017-12-22 | Outpatient (CLI) | payer MEDICARE, OTHER | LOC: GMAL 15:20 | PROVIDERS: ATTEND Family Medicine | DX: R07.89 Other chest pain (principal) ==

== ENCOUNTER → 2018-02-22 | Outpatient (CLI) | payer MEDICARE, OTHER ==
--- NOTE | 2018-02-22 16:28 | US ---
EXAM DESCRIPTION: Breast,Bilateral: Ultrasound CLINICAL HISTORY: 87 yearsFemale6 MONTH FOLLOW UP COMPARISON: Digital diagnostic mammogram bilateral breast on this visit. Bilateral targeted breast ultrasound August 25, 2017. TECHNIQUE: Transcutaneous scanning of the bilateral breast utilizing goodwin-scale and Doppler modes. Scanning performed by the warper creeler and Dr. Jones. FINDINGS: Scanning of the right breast medially with emphasis on the 300 clock position 3 cm from the nipple. Small ducts are noted. Heterogeneous fibroglandular and fatty echotexture. No distinct solid mass or cyst. No large calcifications or parenchymal edema. No overlying skin changes. No abnormal vascularity. Scanning of the left breast upper outer quadrant and laterally with emphasis on the depth 5 cm from the nipple. Scattered fibroglandular elements with variable posterior acoustic shadowing but no definite mass. Circumscribed lymph node with central vascularity and typical echogenicity measuring 8.4 x 5.9 mm at the 100 clock position. Small focal echogenic objects with posterior shadowing are most likely calcifications. No distinct solid mass or cyst. No abnormal vascularity or parenchymal edema. IMPRESSION: 1. Bi-Rads Category 3: Probably Benign Findings. 2. Please refer to bilateral diagnostic digital mammographic examination and report on this visit. The FINDINGS and the FOLLOW-UP plan were reviewed in person with the patient after the examination. Written communication explaining the IMPRESSION and FOLLOW-UP will be mailed to the patient and referring care provider. Electronically signed by: Alfred Jones MD 02/22/2018 4:26 PM CDT
--- NOTE | 2018-02-23 12:01 | MAM ---
EXAM DESCRIPTION: Diagnostic Mammo,Bilateral: Digital Mammography CLINICAL HISTORY: 87 [id number] . Bilateral microcalcifications. Fibrocystic tissues bilaterally, left more than right.. COMPARISON: Bilateral digital diagnostic breast tomosynthesis and bilateral breast targeted ultrasound 08/25/2017. . TECHNIQUE: Bilateral CC LM MLO projection full-field images, digital mammographic tomosynthesis technique. Bilateral full-field 2-D MLO images. Bilateral digital magnification images. CAD not utilized. FINDINGS: The breast parenchymal density pattern is: Heterogeneously dense breast tissue, which may obscure small masses. No skin thickening or nipple retraction bilateral solitary and grouped microcalcifications. Bilateral intramammary lymph nodes. Architectural distortion from biopsy on the right breast with skin marker. Bilateral vascular calcifications. Ultrasound: Scanning of the right breast medially with emphasis on the 300 clock position 3 cm from the nipple. Small ducts are noted. Heterogeneous fibroglandular and fatty echotexture. No distinct solid mass or cyst. No large calcifications or parenchymal edema. No overlying skin changes. No abnormal vascularity. Scanning of the left breast upper outer quadrant and laterally with emphasis on the 300 clock position, 5 cm from the nipple. Scattered fibroglandular elements with variable posterior acoustic shadowing but no definite mass. Circumscribed lymph node with central vascularity and typical echogenicity measuring 8.4 x 5.9 mm at the 100 clock position. Small focal echogenic objects with posterior shadowing are most likely calcifications. No distinct solid mass or cyst. No abnormal vascularity or parenchymal edema. IMPRESSION: BI-RADS CATEGORY: 3 - PROBABLY BENIGN. Management: Short interval (6-month) bilateral diagnostic digital mammography and bilateral targeted breast ultrasound, if indicated by digital mammographic imaging. The FINDINGS and the FOLLOW-UP plan were reviewed in person with the patient after the examination. Written communication explaining the IMPRESSION and FOLLOW-UP will be mailed to the patient and referring care provider. Electronically signed by: Alfred Jones MD 02/23/2018 11:59 AM CDT
== END ==
LOC: MAMMO 10:54
PROVIDERS: ATTEND Family Medicine
DX: R92.8 Other abnormal and inconclusive findings on diagnostic imaging of breast (principal)

== ENCOUNTER → 2018-05-11 | Outpatient (CLI) | payer MEDICARE, OTHER | LOC: GMAL 11:01 | PROVIDERS: ATTEND Family Medicine | DX: D51.3 Other dietary vitamin B12 deficiency anemia (principal); E55.9 Vitamin D deficiency, unspecified ==

== ENCOUNTER → 2018-08-29 | Outpatient (CLI) | payer MEDICARE, OTHER ==
--- NOTE | 2018-08-30 12:31 | US ---
EXAM DESCRIPTION: Breast,Bilateral ultrasound, (accession [id number]), 3D Diagnostic, Bilateral (accession [id number]): Digital Mammography CLINICAL HISTORY: 88 yearsFemaleABNORMAL MAMMO follow-up calcifications right breast. Left breast lymph node. COMPARISON: Diagnostic digital breast tomosynthesis 02/22/2018. Bilateral breast ultrasound 02/22/2018. TECHNIQUE: Bilateral LM projection full-field images, digital mammographic tomosynthesis technique. Right breast MLO and CC projection full-field images, digital tomosynthesis technique. Bilateral 2-D digital full-field MLO images . focal digital magnification images anterior and mid right breast. CAD not utilized. Transcutaneous scanning of the bilateral breasts utilizing goodwin-scale and Doppler modes. Scanning performed by the superior court justice and Dr. Jones. FINDINGS: The breast parenchymal density pattern is: Heterogeneously dense breast tissue, which may obscure small masses. No skin thickening or nipple retraction . Again Noted are numerous bilateral secretory calcifications along with vascular calcifications. Post-biopsy scar inferior mid right breast with architectural distortion and calcifications stable. No new focal, stellate mass or density, focal asymmetry , and no suspicious microcalcifications bilaterally. Ultrasound: Scanning of the right breast from the 2:00 to 4:00 position anteriorly. Scattered small echogenic structures consistent with microcalcifications and secretory calcifications. Mixture of fibroglandular and fatty echotexture is. No dominant solid mass or distinct cyst. No parenchymal edema or large calcifications. Skin changes around the biopsy scar. No parenchymal edema. Scanning of the left breast 1:00-3:00 position, 5 cm from the nipple. Lymph node demonstrated on the prior study is no longer visualized. Scattered echogenic calcifications with shadowing as previously seen. No dominant solid mass or distinct cyst. No parenchymal edema or large calcifications. No overlying skin changes. Normal vascularity. IMPRESSION: BI-RADS CATEGORY: 3 - PROBABLY BENIGN. Management: Short interval (6-month) follow-up bilateral diagnostic breast mammography and targeted bilateral breast ultrasound.. The FINDINGS and the FOLLOW-UP plan were reviewed in person with the patient after the examination. Written communication explaining the IMPRESSION and FOLLOW-UP will be mailed to the patient and referring care provider. Electronically signed by: Alfred Jones MD 08/30/2018 12:27 PM CDT
== END ==
LOC: MAMMO 10:46
PROVIDERS: ATTEND Family Medicine
DX: R92.8 Other abnormal and inconclusive findings on diagnostic imaging of breast (principal)
CPT/HCPCS: 76641; 77066; G0279

== ENCOUNTER → 2018-12-05 | Outpatient (CLI) | payer MEDICARE, OTHER ==
--- NOTE | 2018-12-05 08:39 | RAD ---
EXAM DESCRIPTION: Pelvis CLINICAL HISTORY: 88 years Female, M25.552 COMPARISON: None. FINDINGS: Mild degenerative changes of the lower L-spine with mild narrowing of SI joints. Vascular stent in the left pelvis. There is mild narrowing of the hip joints with minimal lateral osteophyte formation of the acetabular roofs bilaterally. Proximal femurs appear intact. No fracture of the bones of the pelvic ring. Bones appear osteopenic. IMPRESSION: Negative for fracture. Electronically signed by: Stuart Matute MD 12/05/2018 8:36 AM CDT
== END ==
LOC: RAD 08:21
PROVIDERS: ATTEND Orthopaedic Surgery
DX: M25.552 Pain in left hip (principal)

== ENCOUNTER → 2018-12-14 | Outpatient (CLI) | payer MEDICARE, OTHER ==
--- NOTE | 2018-12-15 09:32 | CT ---
EXAM DESCRIPTION: Abdomen/Pelvis w/wo Contrast: Computed Tomography. CLINICAL HISTORY: Left lower quadrant abdominal tenderness COMPARISON: CT scan of the abdomen and pelvis with IV contrast 02/02/2017. TECHNIQUE: Spiral-axial scans at 5 x 5 mm intervals through the abdomen and pelvis before and after Optiray 320 nonionic IV contrast. Water oral contrast. Coronal and sagittal 2.0 mm reconstructions. 5 mm Delayed helical-axial scans, liver through the pubic symphysis. No adverse reactions. Total Exam DLP 3599.1 mGy - cm. This exam was performed according to our departmental CT dose-optimization program which includes automated exposure control, adjustment of the mA and/or kV according to patient size and/or use of iterative reconstruction technique; to reduce radiation dose to as low as reasonably achievable (ALARA). FINDINGS: Lung bases and pleura: Minimal atelectasis in the left base. Liver, Stomach, Spleen, Adrenal Glands: Stomach distended with fluid with radiodense material gravity dependent. Solid organs are negative. Pancreas, Gallbladder, Ducts: Surgical clips gallbladder fossa with no fluid. Duct not dilated. Small pancreas. Splenic artery calcifications. Kidneys and Ureters: Bilateral minimal cortical atrophy. 2 cm juxta cortical cyst right kidney. 2 subcentimeter parapelvic cyst left kidney. Prominent left extrarenal pelvis. Pararenal fatty stranding is symmetric. Ureters are negative. Stable since the prior study. Mesentery: Physiologic pararenal stranding. No free fluid or free air. No focal abnormal stranding or fascial thickening. Aorta: Moderate atherosclerotic calcifications and tortuosity. No aneurysm or significant luminal narrowing. Calcification of the ostia of the major branch vessels. Small Bowel: Fluid throughout the small bowel with minimal gas no air-fluid levels or distention. Terminal Ileum/Cecum: Cecum minimally distended by gas and fluid. TI unremarkable. Proximal appendix mildly thickened. Normal density of the surrounding fat. Colon: Contains fluid with small air-fluid levels. Not distended. Multiple diverticula descending colon and sigmoid colon. No complications.. Pelvic Organs: No radiodense stones in the urinary bladder. Vaginal cuff with adjacent dmitry in calcifications. No fluid in the cul-de-sac. Ovaries not seen. Spine and Bony Pelvis: Degeneration of the L4-L5 disc with spondylosis. Narrowing of the bilateral hip joints. Overall bone density is decreased. Degeneration of the pubic symphysis. Air density in the inferior SI joints. Abdominal Wall/Back Soft Tissues: Peritoneal cavity protrudes under the skin at the umbilicus. Approximately 7 x 7 mm defect at the umbilicus and 9 x 8 mm defect 4 cm above the umbilicus. No herniation of the colon in the protruding segment. Stable since the prior study. IMPRESSION: 1. Juxta cortical cyst on the right kidney and parapelvic cyst on the left kidney. Physiologic pararenal stranding. Ureters and urinary bladder unremarkable. Stable since the prior study. 2. Peritoneal cavity protrudes in the midline at the umbilicus with a segment of colon, with diastases. 2 small subcentimeter hernia defects, at and superior to the umbilicus. No colonic herniation. Diverticulosis of the sigmoid colon but no complications. Stable since the prior study. 3. Degenerative changes in the lumbar spine and joints, stable since the prior study. Electronically signed by: Alfred Jones MD 12/15/2018 9:30 AM CDT
== END ==
LOC: CT 08:00
PROVIDERS: ATTEND Family Medicine
DX: K42.9 Umbilical hernia without obstruction or gangrene (principal); K57.30 Diverticulosis of large intestine without perforation or abscess without bleeding; N28.1 Cyst of kidney, acquired; M47.896 Other spondylosis, lumbar region

== ENCOUNTER → 2018-12-20 | Outpatient (CLI) | payer MEDICARE, OTHER ==
--- NOTE | 2018-12-20 11:50 | CT ---
EXAM DESCRIPTION: Head CLINICAL HISTORY: Tension-type headache, unspecified, not intractable COMPARISON: Previous CT head February 03, 2017 TECHNIQUE: Noncontrast head CT was performed with routine protocol. FINDINGS: Normal goodwin-white matter differentiation. Ventricles and sulci are normal for age. No high density hemorrhage, focal edema or shift of the midline. No sulcal effacement. Normal orbital contents. Basilar cisterns appear clear. Intact calvarium with no fracture or lytic lesion. Small right parafalcine calcification is round in appearance and may represent chronic calcified meningioma 7 mm unchanged from previous. This is considered an incidental finding. Normal aeration of tympanic cavities and mastoid air cells. No fluid levels in the paranasal sinuses. Skull base appears intact. Symmetrical internal auditory canals. Coronal and sagittal reformatted images confirm the findings. IMPRESSION: No acute intracranial pathologic process. This exam was performed according to our departmental dose-optimization program, which includes automated exposure control, adjustment of the mA and/or kV according to patient size and/or use of iterative reconstruction technique. Total DLP equals 752.48 mGycm. Electronically signed by: Stuart Matute MD 12/20/2018 11:46 AM CDT
== END ==
LOC: CT 11:05
PROVIDERS: ATTEND Family Medicine
DX: G44.209 Tension-type headache, unspecified, not intractable (principal)

== ENCOUNTER → 2019-02-20 | Outpatient (CLI) | payer MEDICARE, OTHER ==
--- NOTE | 2019-02-21 15:43 | MAM ---
EXAM DESCRIPTION: Breast,Bilateral (accession [id number]), Diagnostic Mammo,Bilateral (accession [id number]): Ultrasound CLINICAL HISTORY: 88 yearsFemaleABN MAMMO . Right breast cancer with lumpectomy 2006. Also radiation therapy. No remote family history of breast cancer. Childbirth. Postmenopausal 35+ years. No HRT Lifetime risk of developing breast cancer (Tyrer-Cuzick model)(%): Calculated due to age over 85 and personal history of breast cancer. COMPARISON: Diagnostic bilateral breast tomosynthesis and bilateral breast ultrasound 08/29/2018 TECHNIQUE: Bilateral LM, CC, and MLO projection full-field images, digital mammographic tomosynthesis technique. Bilateral 2-D digital full-field images. LM, CC, and MLO projections. Right breast spot magnification CC and LM projections. CAD not utilized. . Transcutaneous scanning of the bilateral breasts utilizing goodwin-scale and Doppler modes. Scanning performed by the packaging associate and Dr. Jones. FINDINGS: The breast parenchymal density pattern is: Heterogeneously dense breast tissue, which may obscure small masses. No skin thickening or nipple retraction numerous bilateral secretory calcifications. Minimal skin thickening architectural distortion, along the skin marker, in the lower outer quadrant of the middle third of the right breast indicating prior lumpectomy site. Bilateral vascular calcifications. No new focal, stellate mass or density, focal asymmetry , and no suspicious microcalcifications bilaterally. Ultrasound: Scanning of the medial right breast. Emphasis at 3:00 position right breast 3 cm from the nipple. Mixed fibroglandular and fatty echotexture. Echogenic calcifications with minimal shadowing. No dominant solid mass or distinct cyst. Scanning of the upper outer quadrant of the left breast. Emphasis 5 cm from the nipple. Scattered echogenic calcifications with acoustic shadowing. No dominant solid mass or distinct cyst. IMPRESSION: Benign exam. BIRAD CATEGORY: 2 BENIGN FINDINGS. RECOMMENDATIONS: FOLLOW UP: Return to routine digital bilateral mammographic screening, one year interval from February 2019. Written communication explaining the IMPRESSION and follow-up, will be mailed to the patient and referring health care provider. The FINDINGS and the FOLLOW-UP plan were reviewed in person with the patient after the examination. According to the [employer], yearly mammograms are recommended starting at age 40 and continuing as long as a woman is in good health. Any breast change noted on a breast self-exam should be reported promptly to the patient's healthcare provider. Breast MRI is recommended for women with an approximately 20-25% or greater lifetime risk of breast cancer, including women with a strong family history of breast or ovarian cancer and women who have been treated for Hodgkin's disease. A negative mammographic report should not delay tissue diagnosis in patients with significant clinical history or physical findings. Extremely dense breast tissue limits the sensitivity of digital mammography. Electronically signed by: Alfred Jones MD 02/21/2019 3:41 PM CDT
== END ==
LOC: US 13:00
PROVIDERS: ATTEND Family Medicine
DX: R92.8 Other abnormal and inconclusive findings on diagnostic imaging of breast (principal)

== ENCOUNTER 2019-03-03 20:32 | Emergency (ER) | payer MEDICARE, OTHER ==
[2019-03-03] MEDS ORDERED: LIDOCAINE 1% W/ EPINEPHRINE 20 ML VIAL INJ ONE (20:52)
--- NOTE | 2019-03-03 21:09 | ED.PDOC ---
History of Present Illness - General Chief Complaint: Trauma Stated Complaint: tripped and fell Time Seen by Provider: 03/03/19 20:45 Source: patient, family, EMS Exam Limitations: no limitations Additional Information: Ms. Nick is an 88-year-old female who presents to the ED via EMS after a trip and fall prior to arrival. Patient was [place] [employer] [place] and got her foot caught on the edge of a carpet and fell forward and hit her face on the ground. Patient denies loss of consciousness. Patient's complaints are a nosebleed and right knee laceration. She indicates she is only in mild discomfort. Patient denies nausea, vomiting, headache, neck pain, chest pain, shortness of breath, back pain, abdominal pain. Patient experienced no dizziness prior to the event. Eyes being on blood thinner. Patient reports no other complaints. - History of Present Illness Allergies/Adverse Reactions: Allergies Penicillin V [From Pen-Vee-K] Allergy (Verified 02/02/17 21:03) Home Medications: Ambulatory Orders Fenofibric Acid [Trilipix] 135 mg PO TOBI-OTH-DAY 08/06/14 Levothyroxine Sodium [Synthroid] 50 mcg PO DAILY 08/06/14 Lisinopril & Hydrochlorothiazi [Lisinopril/Hctz 20-12.5 mg] 1 tab PO BID 08/06/14 Pantoprazole Tablet [Protonix] 40 mg PO DAILY 08/06/14 Cranberry (Vaccinium Macrocarp [Cranberry] 250 mg PO DAILY 10/18/14 Multiple Vitamin [Ocuvite] 1 tab PO DAILY 10/18/14 Aspirin [Aspirin Adult Low Dose] 81 mg PO BEDTIME 02/02/17 Psyllium Powder Pack [Metamucil Powder Pack] 1 ea PO BEDTIME 02/02/17 Simvastatin 20 mg PO BEDTIME #0 02/04/17 Review of Systems - Review of Systems Constitutional: States: no symptoms reported. Denies: fever, weakness EENTM: States: see HPI, nose pain. Denies: blurred vision Respiratory: States: no symptoms reported. Denies: short of breath Cardiology: States: no symptoms reported. Denies: chest pain, palpitations Genitourinary: States: pain Musculoskeletal: States: see HPI. Denies: joint pain Skin: States: no symptoms reported Neurological: States: no symptoms reported. Denies: headache, numbness, paresthesia, weakness All other Systems: Reviewed and Negative Past Medical History (General) - Patient Medical History Hx Seizures: No Hx Stroke: No Hx Dementia: No Hx Asthma: No Hx of COPD: No Hx Cardiac Disorders: No Hx Congestive Heart Failure: No Hx Pacemaker: No Hx Hypertension: Yes Hx Thyroid Disease: No Hx Diabetes: No Hx Renal Disease: No Hx Cancer: Yes - hx of breast ca Hx of HIV: No Hx Hepatitis C: No Hx MRSA: No Surgical History: appendectomy, cholecystectomy, Hysterectomy, other - Vaccination History Hx Tetanus, Diphtheria Vaccination: Yes Hx Influenza Vaccination: No Hx Pneumococcal Vaccination: Yes Immunizations Up to Date: Yes - Social History Hx Tobacco Use: No Hx Chewing Tobacco Use: No Hx Alcohol Use: No Hx Substance Use: No Hx Substance Use Treatment: No Hx Depression: No Feels Threatened In Home Enviroment: No Feels Threatened In a Relationship: No Hx Physical Abuse: No Hx Emotional Abuse: No Hx Suspected Abuse: No - Activities of Daily Living Hospice Agency (if applicable):: None - Female History Patient is a Female of Child Bearing Age (10 -59 yrs old): No - Triage Comment ED Triage Comment: AAOX4, Family Medical History - Family History Mother Family History: Unknown Physical Exam - Physical Exam General Appearance: Alert, Frail, Other - uncomfortable Head Injury: other - nose is normal appearance and is not deviated. Patient with active mild bleeding from bilateral nares. There is no laceration to the nose. Face is otherwise atraumatic. Eye Exam: left normal ENT Exam: no dental injury Neck Exam: non-tender, full range of motion, normal alignment, normal inspection Cardiovascular/Respiratory: regular rate, rhythm, no M/R/G, normal breath sounds, no respiratory distress Gastrointestinal/Abdominal: normal bowel sounds, non tender, soft, no organomegaly Back Exam: normal inspection, no CVA tenderness, no vertebral tenderness Extremity Exam: other - 8 cm linear laceration through the dermis to the right knee over the patella. Patient has good range of motion of knee. 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 03/04/19 01:02 Patient's imaging is nonacute and patient has not broken her nose. Patient is on aspirin and she has had persistent oozing from the right nare throughout her ED course. Despite Afrin nasal spray with Afrin soaked pledgets in nares and direct pressure with nasal clamp, patient's oozing persisted. A rapid Rhino 4.5 cm device was inserted in the right nare without difficulty and patient's bleeding stopped. Patient was given a 20 cc syringe to take home and her family instructed on how to deflate the balloon to remove the rapid Rhino device on Wednesday morning. I discussed the patient's sutures in her knee will remain in place for 1 week. Vital signs stable, patient NAD and looks clinically well and is safe for discharge with outpatient follow-up. Follow-up instructions, discharge instructions and return to ED precautions discussed with patient, Patient voices understanding and willingness to comply with instructions. All laboratory and radiographic results have been discussed with the patient, and all questions answered.. Patient happy with plan. - EKG/XRAY/CT CT Ordered: Yes Procedures - Laceration/Wound Repair Right Knee Wound's Depth, Shape: superficial Wound Explored: clean Irrigated w/ Saline (cc's): 250 Betadine Prep?: Yes Anesthesia: Lidocaine w/ Epi Volume Anesthetic (cc's): 10 Wound Debrided: minimal Wound Repaired With: sutures Suture Size/Type: 4:0, nylon Number of Sutures: 18 Layer Closure?: No Sterile Dressing Applied?: Yes Departure - Departure Clinical Impression: Blunt trauma of nose Qualifiers: Encounter type: initial encounter Qualified Code(s): S09.92XA - Unspecified injury of nose, initial encounter Laceration of knee, right Qualifiers: Encounter type: initial encounter Qualified Code(s): S81.011A - Laceration without foreign body, right knee, initial encounter Time of Disposition: 00:57 Disposition: Discharge to Home or Self Care Condition: Good Departure Forms: ED Discharge - Pt. Copy, Patient Portal Self Enrollment Instructions: DI for Trauma, Nosebleeds (DC), Laceration Repair With Stitches (DC) Activity: ambulate only with walker Referrals: Russel Mariscal III, MD [Primary Care Provider] - 1-5 Days Home Medications: Ambulatory Orders Fenofibric Acid [Trilipix] 135 mg PO TOBI-OTH-DAY 08/06/14 Levothyroxine Sodium [Synthroid] 50 mcg PO DAILY 08/06/14 Lisinopril & Hydrochlorothiazi [Lisinopril/Hctz 20-12.5 mg] 1 tab PO BID 08/06/14 Pantoprazole Tablet [Protonix] 40 mg PO DAILY 08/06/14 Cranberry (Vaccinium Macrocarp [Cranberry] 250 mg PO DAILY 10/18/14 Multiple Vitamin [Ocuvite] 1 tab PO DAILY 10/18/14 Aspirin [Aspirin Adult Low Dose] 81 mg PO BEDTIME 02/02/17 Psyllium Powder Pack [Metamucil Powder Pack] 1 ea PO BEDTIME 02/02/17 Simvastatin 20 mg PO BEDTIME #0 02/04/17 Additional Instructions: Your stitches in the knee will stay in for 1 week. Please follow up with your doctor a week on Wednesday for suture removal. You may shower as accustomed. Please keep the nasal packing in place until Wednesday afternoon. At that time you may deflate the balloon per the instructions shown to you in the emergency department. Return to the ED for any significant bleeding from the nose or worsening of symptoms.
--- NOTE | 2019-03-03 21:49 | RAD ---
EXAM: XR Right Knee, 2 Views CLINICAL HISTORY: The patient is 88 years old and is Female; trauma TECHNIQUE: 2 views of the right knee. COMPARISON: No relevant prior studies available. FINDINGS: BONES/JOINTS: A knee prosthesis is present. The hardware is engaged without surrounding the. There is no joint effusion. Soft tissue injury along the anterior knee is present. No acute fracture. No dislocation. SOFT TISSUES: Unremarkable. VASCULATURE: Atherosclerosis of the vasculature is present. IMPRESSION: Soft tissue injury along the anterior knee is present. No underlying acute bony abnormality. Electronically signed by: Olivia Alcatnar MD 03/03/2019 9:47 PM CDT
--- NOTE | 2019-03-03 21:51 | CT ---
EXAM: CT Head Without Intravenous Contrast CLINICAL HISTORY: The patient is 88 years old and is Female; facial trauma TECHNIQUE: Axial computed tomography images of the head/brain without intravenous contrast. Sagittal and coronal reformatted images were created and reviewed. This CT exam was performed using one or more of the following dose reduction techniques: automated exposure control, adjustment of the mA and/or kV according to patient size, and/or use of iterative reconstruction technique. COMPARISON: CT head December 20, 2018. FINDINGS: BRAIN: There is diffuse cerebral atrophy present, consistent with this patient's age. There is patchy hypoattenuation of the deep white matter which is non-specific, but most likely owing to chronic small vessel ischemic change in a patient of this age group. No intracranial hemorrhage, mass effect, or midline shift is seen. There are no extra-axial fluid collections. VENTRICLES: Unremarkable. No ventriculomegaly. BONES/JOINTS: No acute fracture. SOFT TISSUES: Unremarkable. VASCULATURE: Atherosclerosis of intracranial vasculature is present. SINUSES: A small amount of fluid is present within the sphenoid sinuses, right ethmoid air cells and right maxillary sinus. MASTOID AIR CELLS: Small amount of fluid is present within the right mastoid air cells. ORBITS: Unremarkable as visualized. NASAL CAVITY/SEPTUM: The nasal passages are fluid-filled. IMPRESSION: Age-related atrophy and chronic white matter ischemic changes, with no evidence of an acute intracranial abnormality. Electronically signed by: Olivia Alcantar MD 03/03/2019 9:49 PM CDT
--- NOTE | 2019-03-03 21:52 | CT ---
EXAM: CT Maxillofacial Without Intravenous Contrast CLINICAL HISTORY: The patient is 88 years old and is Female; FACIAL TRAUMA TECHNIQUE: Axial computed tomography images of the face without intravenous contrast. Sagittal and coronal reformatted images were created and reviewed. This CT exam was performed using one or more of the following dose reduction techniques: automated exposure control, adjustment of the mA and/or kV according to patient size, and/or use of iterative reconstruction technique. COMPARISON: No relevant prior studies available. FINDINGS: BONES/JOINTS: The orbital floors and vee are intact. The zygomatic arches and pterygoid plates are intact. The visualized maxilla and mandible are intact. SOFT TISSUES: Unremarkable. ORBITS: The globes, extraocular muscles, and optic nerve complexes are within normal limits. SINUSES: Small amount of fluid within the sphenoid sinuses, right ethmoid air cells, and right maxillary sinus is present. DENTAL: Streak artifact from patient's dental hardware. Limits evaluation. NASAL CAVITY/SEPTUM: s fluid and air are noted within the nasal passages bilaterally. The nasal bones are intact. IMPRESSION: No acute facial fracture. Electronically signed by: Olivia Alcantar MD 03/03/2019 9:51 PM CDT
[2019-03-03] MEDS ORDERED: OXYMETAZOLINE NASAL SPRAY 15 ML BTTL ONE (23:00)
[2019-03-03] MEDS ORDERED: POVIDONE IODINE 10 % 15 ML UD TOP ONE (23:13)
[2019-03-03] MEDS ORDERED: CHLORHEXIDINE GLUCONATE 4 % 15 ML UD TOP ONE (23:13)
[2019-03-03] MEDS ORDERED: WATER FOR INJ 10 ML VIAL INJ ONE (23:33)
[2019-03-03] MEDS ORDERED: NEOMYCIN-BACITRACIN-POLYMYXIN 0.9 GM UD TOP ONE (23:43)
[2019-03-04 01:18] VITALS: BP 124/82; TEMP 98.1; O2SAT 96
== END 2019-03-04 01:06 | disposition home or self-care (01) ==
LOC: ER 20:32
DX: S09.92XA Unspecified injury of nose, initial encounter (principal); S81.011A Laceration without foreign body, right knee, initial encounter; R04.0 Epistaxis; I10 Essential (primary) hypertension; Z85.3 Personal history of malignant neoplasm of breast; Z79.899 Other long term (current) drug therapy; Z79.82 Long term (current) use of aspirin; Z88.0 Allergy status to penicillin; W01.0XXA Fall on same level from slipping, tripping and stumbling without subsequent striking against object, initial encounter; Y92.29 Other specified public building as the place of occurrence of the external cause
CPT/HCPCS: 70450; 70486; 73560; A4216

== ENCOUNTER 2019-03-04 02:50 | Observation (INO) | payer MEDICARE, OTHER ==
[2019-03-04] MEDS ORDERED: SODIUM CHLORIDE 0.9% 1000ML 500 ML IVS ONE (03:17)
--- NOTE | 2019-03-04 03:27 | ED.PDOC ---
History of Present Illness - General Chief Complaint: Neuro Symptoms/Deficits Stated Complaint: sudden weakness, pale, and seizure like activity Time Seen by Provider: 03/04/19 03:14 Source: patient, family Exam Limitations: no limitations Additional Information: Mrs. Nick is an 88-year-old female who returns to the ED with chief complaint of syncopal episode prior to arrival. Patient had earlier in the evening been evaluated in the emergency department for a mechanical trip and fall in which she bumped her nose and had an intermitted very slow nasal trickle of blood from the right nares due to the aspirin she was taking. Patient had no loss of consciousness after her fall and her head CT and maxillofacial bone CT were both negative for pathology. Ultimately patient had a Rhino rocket placed in her right nares for the bleeding and felt well and was discharged home. Per report from radha, patient was ambulating well at home but then became lightheaded and paused and then slumped to the ground. Family noted "twitching" activity but no dennis tonic clonic movements. Symptoms were very brief for only a few moments and then patient's was difficult to arouse for another few moments and then she was briefly confused and then she returned back to her normal mental state. Patient sustained no injury and indicates that she feels completely fine and back to normal. Patient specifically denies headache, neck pain, dizziness, shortness of breath, chest pain or abdominal pain. Patient has not experienced an episode of nasal re-bleeding and does not have the sensation of blood going down the back of her throat. - History of Present Illness Allergies/Adverse Reactions: Allergies Penicillin V [From Pen-Vee-K] Allergy (Verified 02/02/17 21:03) Home Medications: Ambulatory Orders Fenofibric Acid [Trilipix] 135 mg PO TOBI-OTH-DAY 08/06/14 Levothyroxine Sodium [Synthroid] 50 mcg PO DAILY 08/06/14 Lisinopril & Hydrochlorothiazi [Lisinopril/Hctz 20-12.5 mg] 1 tab PO BID 08/06/14 Pantoprazole Tablet [Protonix] 40 mg PO DAILY 08/06/14 Cranberry (Vaccinium Macrocarp [Cranberry] 250 mg PO DAILY 10/18/14 Multiple Vitamin [Ocuvite] 1 tab PO DAILY 10/18/14 Aspirin [Aspirin Adult Low Dose] 81 mg PO BEDTIME 02/02/17 Psyllium Powder Pack [Metamucil Powder Pack] 1 ea PO BEDTIME 02/02/17 Simvastatin 20 mg PO BEDTIME #0 02/04/17 Past Medical History (General) - Patient Medical History Hx Seizures: No Hx Stroke: No Hx Dementia: No Hx Asthma: No Hx of COPD: No Hx Cardiac Disorders: No Hx Congestive Heart Failure: No Hx Pacemaker: No Hx Hypertension: Yes Hx Thyroid Disease: No Hx Diabetes: No Hx Gastroesophageal Reflux: No Hx Renal Disease: No Hx Cancer: Yes - hx of breast ca Hx of HIV: No Hx Hepatitis C: No Hx MRSA: No Surgical History: no surgical history - Vaccination History Hx Tetanus, Diphtheria Vaccination: Yes Hx Influenza Vaccination: No Hx Pneumococcal Vaccination: Yes Immunizations Up to Date: Yes - Social History Hx Tobacco Use: No Hx Chewing Tobacco Use: No Hx Alcohol Use: No Hx Substance Use: No Hx Substance Use Treatment: No Hx Depression: No Feels Threatened In Home Enviroment: No Feels Threatened In a Relationship: No Hx Physical Abuse: No Hx Emotional Abuse: No Hx Suspected Abuse: No - Activities of Daily Living Hospice Agency (if applicable):: None - Female History Patient is a Female of Child Bearing Age (10 -59 yrs old): No Patient : No Physical Exam - Physical Exam General Appearance: Alert, Comfortable, No apparent distress Eyes, Ears, Nose, Throat Exam: PERRL/EOMI, other - There is a nasal rhino rocket in her right nares with an inflated balloon. There is no bleeding from the nose. Neck: non-tender, full range of motion, supple, normal inspection Cardiovascular/Respiratory: regular rate, rhythm, no M/R/G, normal peripheral pulses, no JVD, normal breath sounds, no respiratory distress Gastrointestinal/Abdominal: normal bowel sounds, non tender, no organomegaly Back Exam: normal inspection Extremity: normal range of motion, other - there is a sutured laceration to patient's right knee. 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 Q waves II, III, aVF, V1, V2.normal ST segment, nonspecific T-wave changes. Negative STEMI. 03/04/19 04:33 Patient reexamined and has remained feeling well throughout her ED visit. Patient has ambulated to the bathroom with assistance without difficulty. Patient's laboratory testing today reveal a UTI. Urine has been cultured and patient begun on Levaquin. Clinically I suspect the UTI is unrelated and that patient had a vasovagal episode at home from mechanical irritation from the balloon inflation of her Rhino Rocket. I have extremely low clinical concern f or new onset seizure activity. Patient is slightly anemic but this is baseline for her and not related to the very minor but intermittent and persistent epistaxis that she experienced earlier in the evening. IV fluids given in the ED and I have discussed patient's case with Dr. Dobson, hospitalist, who accepts patient for obs ADMISSION. - Results/Orders Results/Orders: 03/04/19 03:15 EKG STAT 03/04/19 04:03 Urine Culture Stat 03/04/19 04:29 Urine Culture Stat Laboratory Results - last 24 hr 03/04/19 03/04/19 03/04/19 02:28 02:28 02:28 WBC 13.1 H RBC 3.37 L Hgb 11.0 L Hct 32.6 L MCV 96.8 MCH 32.6 H MCHC 33.7 RDW 13.6 Plt Count 379 MPV 7.8 Absolute Neuts (auto) 10.80 H Absolute Lymphs (auto) 1.30 Absolute Monos (auto) 0.90 H Absolute Eos (auto) 0.00 Absolute Basos (auto) 0.10 Neutrophils % 81.9 H Lymphocytes % 10.0 L Monocytes % 7.1 Eosinophils % 0.4 L Basophils % 0.6 PT 9.8 INR 0.98 Sodium 131 L Potassium 3.9 Chloride 98 L Carbon Dioxide 19 L Anion Gap 17.9 BUN 28 H Creatinine 0.84 BUN/Creatinine Ratio 33.3 H Random Glucose 148 H Serum Osmolality 270.9 L Calcium 8.6 Troponin I Free T4 Urine Color Urine Appearance Urine pH Ur Specific [place] Urine Protein Urine Glucose (UA) Urine Ketones Urine Blood Urine Nitrite Urine Bilirubin Urine Urobilinogen Ur Leukocyte Esterase Urine RBC Urine WBC Ur Epithelial Cells Urine Bacteria 03/04/19 03/04/19 03/04/19 02:28 02:28 04:03 WBC RBC Hgb Hct MCV MCH MCHC RDW Plt Count MPV Absolute Neuts (auto) Absolute Lymphs (auto) Absolute Monos (auto) Absolute Eos (auto) Absolute Basos (auto) Neutrophils % Lymphocytes % Monocytes % Eosinophils % Basophils % PT INR Sodium Potassium Chloride Carbon Dioxide Anion Gap BUN Creatinine BUN/Creatinine Ratio Random Glucose Serum Osmolality Calcium Troponin I < 0.02 Free T4 0.92 Urine Color Yellow Urine Appearance Cloudy Urine pH 5.5 Ur Specific [place] 1.015 Urine Protein Negative Urine Glucose (UA) Negative Urine Ketones Trace Urine Blood Moderate H Urine Nitrite Negative Urine Bilirubin Negative Urine Urobilinogen 0.2 Ur Leukocyte Esterase Small H Urine RBC 0-1 Urine WBC 3-5 H Ur Epithelial Cells 1-3 Urine Bacteria 4+ H Departure - Departure Clinical Impression: Vasovagal episode Urinary tract infection with hematuria Qualifiers: Urinary tract infection type: site unspecified Qualified Code(s): N39.0 - Urinary tract infection, site not specified Time of Disposition: 04:43 Disposition: Admit Patient Condition: Fair Departure Forms: ED Discharge - Pt. Copy, Patient Portal Self Enrollment Home Medications: Ambulatory Orders Fenofibric Acid [Trilipix] 135 mg PO TOBI-OTH-DAY 08/06/14 Levothyroxine Sodium [Synthroid] 50 mcg PO DAILY 08/06/14 Lisinopril & Hydrochlorothiazi [Lisinopril/Hctz 20-12.5 mg] 1 tab PO BID 08/06/14 Pantoprazole Tablet [Protonix] 40 mg PO DAILY 08/06/14 Cranberry (Vaccinium Macrocarp [Cranberry] 250 mg PO DAILY 10/18/14 Multiple Vitamin [Ocuvite] 1 tab PO DAILY 10/18/14 Aspirin [Aspirin Adult Low Dose] 81 mg PO BEDTIME 02/02/17 Psyllium Powder Pack [Metamucil Powder Pack] 1 ea PO BEDTIME 02/02/17 Simvastatin 20 mg PO BEDTIME #0 02/04/17 Decision To Admit - Decistion To Admit Decision to Admit Reason: Admit from ER
--- NOTE | 2019-03-04 04:11 | RAD ---
EXAM: XR Chest, 1 View CLINICAL HISTORY: The patient is 88 years old and is Female; syncope TECHNIQUE: Frontal view of the chest. COMPARISON: Chest radiograph from 08/06/2014 FINDINGS: LUNGS: Unremarkable. No consolidation. PLEURAL SPACE: Unremarkable. No pneumothorax. HEART: No significant enlargement of the cardiac silhouette. MEDIASTINUM: Unremarkable. BONES/JOINTS: No acute osseous findings. IMPRESSION: No acute findings visualized in the chest. Electronically signed by: Iris Rivera MD 03/04/2019 4:10 AM CDT
[2019-03-04] MEDS ORDERED: levoFLOXacin 750MG IV 750 MG in PREMIX BAG 1 BAG IVPB ONE (04:40)
--- NOTE | 2019-03-04 04:52 | HP ---
SUPERVISING PHYSICIAN: Oscar Rivero MD CHIEF COMPLAINT: Question seizure activity. HISTORY OF PRESENT ILLNESS: Ms. Womack is an 88 year-old female patient who returned to the Emergency Room this morning complaining of a near syncopal episodes prior to arrival. She had been seen earlier in the Emergency Room after a same-level fall after which she had a significant nosebleed. She was discharged home with a Rhino Rocket placed in the right nare. CT of the head and maxillofacial bone CT were both negative for any significant pathology. It was reported by the grandson that the patient was walking at home and became lightheaded, paused and went to the ground. At one time he noted she was twitching but no dennis tonic or clonic movements were noted. The symptoms were very brief and the patient had some difficulty aroused for a few moments and she was briefly confused and quickly returned back to her baseline normal mental status. The patient denied any significant injuries during this episode and felt she was back to normal but given the recent fall and history of seizures, the family took the patient to the Emergency Room for further evaluation. On admission to the Emergency Room, the patient denied headaches, neck pain, dizziness, shortness of breath, chest pain or abdominal pains. She denied any bleeding from the right nare and had no nausea or vomiting. She had a chest x- ray that showed no significant findings per radiology interpretation. Urinalysis did show that she had a moderate amount of blood with leukoesterase but microscopic revealed 4+ bacteria with 3 to 5 WBCs, therefore a culture was obtained and she was started on Levaquin. The patient does not that she was just recently treated for a urinary tract infection but those records are not available at time of admission. Emergency Room physician requested the patient be placed in observation given the significant nature of the traumatic fall she had prior to this event and the fact that she had a near syncopal episode which he contributed to possibly a vasovagal episode. Her EKG 12-lead was showing normal sinus rhythm with first degree AV block with some nonspecific ST-T wave changes. The patient was found to be stable and will be placed in observation for continuation of treatment. PAST MEDICAL HISTORY: 1. Hypertension. 2. Hypercholesterolemia. 3. Diverticulosis. 4. Left lower fracture in 2005. 5. Osteopenia. 6. Hypothyroidism. 7. 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 8. Seizure disorder, uncertain of last seizure before this event, on Trileptal. PAST SURGICAL HISTORY: 1. Appendectomy in 1964. 2. Total hysterectomy in 1979. 3. 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 4. Right knee arthroscopy in 2000. 5. Total knee arthroplasty in 2007. 6. Squamous cell carcinoma, left hand in 2008. 7. Caesarean section x2. 8. Colonoscopy, medical records show 2007 with some diverticula noted. 9. Last echocardiogram in May, showed grade 1 diastolic dysfunction with 60% ejection fraction. 10. Normal perfusion nuclear stress test in 2014 with noted ejection fraction of 50%. CURRENT MEDICATIONS: 1. Lexapro 5 mg daily. 2. Trileptal 150 mg daily. 3. Meloxicam 15 mg daily. 4. Levothyroid 0.1 mcg daily. 5. Aspirin 81 mg at bedtime. 6. Protonix 40 mg daily. 7. Lisinopril/Hydrochlorothiazide 20/12.5, 20 mg b.i.d. ALLERGIES: Penicillin. FAMILY HISTORY: Father at age 60 due to prostate cancer. Mother at age 89 from advanced age. Two brothers, one with hypertension, one from prostate cancer at age 60. She has three sisters, one is a [id number] diabetic. 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 She is and lives in [place]. She has never smoked and notes she does have a drink periodically consisting of pretty hard liquor. No illicit drug use. REVIEW OF SYSTEMS: CONSTITUTIONAL: Denies any fevers, chills, or general malaise. HEENT: Notes she does have a headache on the right side. Denies earaches, sore throat, does have a Rhino Rocket placed in the right nare due to epistaxis with ecchymosis. Denies any neck pain or vision changes. RESPIRATORY: Denies coughing, wheezing or shortness of breath. CARDIOVASCULAR: Denies chest pain or palpitations, questionable syncopal episode. No history of illness. GASTROINTESTINAL: Denies nausea or vomiting, diarrhea, constipation or abdominal pain. GENITOURINARY: Denies dysuria, hematuria, polyuria. MUSCULOSKELETAL: Large laceration from the fall over the right knee with [address] Multiple bruising, general soreness but no reported edema. NEUROLOGIC: Positive as per history of present illness. Questionable syncopal episode prior to arrival. Denies any vision changes, ataxia, does have a history of seizures with questionable seizure prior to arrival, on Trileptal and known past history of seizures. HEMATOLOGICAL: She does have some easy bruising, denies frequent bleeding. No history of illness, severe epistaxis after sustaining a fall. PHYSICAL EXAMINATION: VITAL SIGNS: Temperature 98.8, pulse 95, blood pressure 164/72, respirations 20, oxygen saturation 99% on room air. Admission weight 99.8 kg. GENERAL: The patient appears to be alert, fairly comfortable and in no acute distress but does report she does not like the nasal rocket. HEENT: Nasal Rhino Rocket in place in the right nare with inflated balloon. No noted bleeding. There is ecchymoses under both orbits. No bajwa signs. Tympanic membranes are clear bilaterally. Oropharynx pink, moist with no noted lesions. NECK: Supple, non-tender, full range of motion, no jugular venous distention. CHEST: Lung sounds are clear to auscultation without any notable rhonchi, rales, or wheezes. CARDIOVASCULAR: Regular rate and rhythm without appreciable murmurs, rubs, or gallops. ABDOMEN: Soft, non-tender, positive bowel sounds. BACK: Without notable CVA or vertebral tenderness and normal on inspection. EXTREMITIES: Laceration is sutured around her right knee with multiple ecchymoses both upper and lower extremities. Distal pulses strong, capillary refill is brisk. No reported sensory or neuro deficits. NEUROLOGIC: Cranial nerves II through XII grossly intact. Facial features were symmetrical. Extraocular movements within normal limits. No notable nystagmus. She is alert and oriented x 3. SKIN: Allison, warm and dry with some ecchymotic areas as noted above. LABORATORY: White count showed a leukocytosis of 13,100 with hemoglobin 11, [id number], platelet count did show a differential. Coagulation studies showed normal PT/PTT. Chemistries showed sodium 133, potassium 3.9, carbon dioxide low at 19, anion gap normal at 17. BUN 28, creatinine 0.84, calcium 8.6. Troponin less than 0.02. Free T4 was normal. Urinalysis did show 4+ bacteria with only 1 to 3 epithelials with 3 to 5 WBC, small amount of leukoesterase on dipstick with positive blood. MICROBIOLOGY: Urine cultures pending. RADIOLOGY: Chest x-ray per radiology interpretation single view chest shows no acute findings. Review of Emergency Room visit same day, showed she had a maxillofacial CT and head CT. There were no acute facial fractures noted. CT of the head showed age-related atrophy with chronic white matter ischemic changes but no evidence of acute intracranial abnormalities. She also had an x- ray of the right knee with soft tissue injury along her anterior knee with no underlying acute bony abnormalities. ASSESSMENT: 1. Syncopal episode, questionable seizure status post recent same level fall significant closed head injury, likely concussion. 2. Significant epistaxis due to recent traumatic facial trauma from a fall with a Rhino Rocket in place in the right nare, showing to be without complications. 3. Urinary tract infection possibly contributing to #1 with cultures pending. 4. Leukocytosis possibly contributed to urinary tract infection and exacerbated by a recent traumatic event, some demarginalization with the patient being started on Levaquin. 5. Electrolyte imbalance to include hyponatremia most likely chronic with the patient on Lexapro and Trileptal. 6. History of hypercholesterolemia. 7. History of hypertension. 8. History of hypothyroidism on supplementation. 9. History of breast cancer, surgical excision, chemo and radiation treatment. 10. Osteopenia. PLAN: We will place Ms. Womack in observation for close neurological monitoring. Will have every 4 hours neuro checks. Will hold off on Lovenox given her significant nosebleed. Will resume home medications including Trileptal. Having given her a low sodium will go ahead and give her some fluids, although I feel like it is probably chronically low but not causing any of her current symptoms. Will plan to recheck at CT of the head in the morning given the patient's recent traumatic injury and advanced age to insure that she didn't develop an occult bleed that was not seen on initial workup. Will give consideration to removing the Rhino Rocket in the morning but reassess and make a decision at that time. Will go ahead and continue with antibiotics with Levaquin for urinary tract infection, repeat laboratory studies in the morning including BMP and CBC. She will have Tylenol for pain and fever. She will be on regular diet as tolerated. Will get a physical therapy evaluation. Will anticipate her length of stay to be 1 to 2 days, probably discharge later tomorrow once her CT is cleared and she does not have anymore additional episodes or any seizure-like activity. Once discharged, she will need to follow with Dr. Mariscal closely and until then we will continue to monitor and treat as necessary. #[id number] MTDD
[2019-03-04] MEDS ORDERED: ACETAMINOPHEN 325 MG TAB PO PRN (07:04)
[2019-03-04] MEDS ORDERED: ONDANSETRON INJ 4 MG/2 ML VIAL IV PRN (07:04)
[2019-03-04] MEDS ORDERED: SODIUM CHLORIDE 0.9% (FLUSH) 10 ML SYG IV PRN (07:04)
[2019-03-04] MEDS ORDERED: IV SET AND CAP CHANGE INJ INJ SCH (07:30)
[2019-03-04] MEDS: HYDROcodone 5MG/APAP 325MG 1 EA TAB PO PRN ×2 (12:08→17:53)
[2019-03-04] MEDS ORDERED: NON-FORMULARY MEDICATION 1 EA MIS (Lisinopril & Hydrochlorothiazi [Lisinopril/Hctz 20-12.5 PO SCH (13:30)
[2019-03-04] MEDS: LISINOPRIL 10 MG TAB PO SCH (14:35)
[2019-03-04] MEDS: PANTOPRAZOLE SODIUM TAB 40 MG PO SCH (14:35)
[2019-03-04] MEDS: hydroCHLOROthiazide 12.5 MG CAP PO SCH (14:36)
[2019-03-04] MEDS: OXcarbazepine 300 MG TAB PO SCH (14:36)
[2019-03-04] MEDS: LEVOTHYROXINE SODIUM 0.1 MG TAB PO SCH (14:36)
[2019-03-04] MEDS: ESCITALOPRAM 10 MG TAB PO SCH (14:36)
[2019-03-04] MEDS: SODIUM CHLORIDE 0.9% 1000ML 1,000 ML IVS PRN (15:04)
[2019-03-04] MEDS ORDERED: SODIUM CHLORIDE 0.65% NASAL SPRAY 45 ML BTTL ONE (16:07)
[2019-03-04] MEDS ORDERED: HYDROcodone 10MG/APAP 325MG 1 EA TAB ONE (21:10)
[2019-03-04] MEDS: HYDROcodone 10MG/APAP 325MG 1 EA TAB PO PRN (21:12)
[2019-03-05] MEDS: SODIUM CHLORIDE 0.9% 1000ML 1,000 ML IVS PRN (04:33)
[2019-03-05] MEDS: HYDROcodone 10MG/APAP 325MG 1 EA TAB PO PRN ×2 (04:38→10:17)
[2019-03-05 05:22] VITALS: O2SAT 96
[2019-03-05] MEDS: PANTOPRAZOLE SODIUM TAB 40 MG PO SCH (06:05)
[2019-03-05] MEDS: LEVOTHYROXINE SODIUM 0.1 MG TAB PO SCH (06:05)
[2019-03-05] MEDS: OXcarbazepine 300 MG TAB PO SCH (08:49)
[2019-03-05] MEDS: LISINOPRIL 10 MG TAB PO SCH (08:49)
[2019-03-05] MEDS: hydroCHLOROthiazide 12.5 MG CAP PO SCH (08:50)
[2019-03-05] MEDS: ESCITALOPRAM 10 MG TAB PO SCH (08:50)
--- NOTE | 2019-03-05 09:24 | CT ---
EXAM DESCRIPTION: Head CLINICAL HISTORY: Fall form same level f/u COMPARISON: CT head and maxillofacial 03/03/2019. CT head 12/20/2018. TECHNIQUE: Non contrast cranial CT with multiplanar reconstructions. FINDINGS: No acute intracranial hemorrhage, transcortical infarct, mass or mass effect. No focal edema or midline shift. Mild generalized cerebral volume loss, age-related. No hydrocephalus. The goodwin-white matter differentiation is intact. Mild periventricular and deep white matter hypodensities are nonspecific but likely related to chronic microvascular ischemic changes. No displaced calvarial fracture. Moderate mucoperiosteal thickening within the right ethmoid air cells. Air-fluid level within the right maxillary sinus appears unchanged. Slightly increased layering fluid within the right sphenoid sinus. . Trace chronic right mastoid tip effusion, unchanged. IMPRESSION: 1. No acute intracranial abnormality. 2. Paranasal sinuses mucoperiosteal thickening and sinusitis as above. This exam was performed according to our departmental dose-optimization program, which includes automated exposure control, adjustment of the mA and/or kV according to patient size and/or use of iterative reconstruction technique. Electronically signed by: Claude Varela DO 03/05/2019 9:22 AM CDT
[2019-03-05] MEDS ORDERED: levoFLOXacin 500 MG TAB PO SCH (11:30)
[2019-03-05] MEDS ORDERED: INFLUENZA VIRUS VACC (ADULT) 0.5 ML SYG IM ONE (11:53)
[2019-03-05] MEDS ORDERED: ONDANSETRON ODT 8 MG TAB ONE ×2 (12:58→13:00)
[2019-03-05] MEDS ORDERED: PROMETHAZINE HCL INJ 25 MG/ML VIAL ONE (13:03)
[2019-03-05 13:27] VITALS: BP 135/70; TEMP 98.7
[2019-03-05] MEDS ORDERED: ONDANSETRON ODT 8 MG TAB SL ONE (13:44)
[2019-03-05] MEDS ORDERED: PROMETHAZINE HCL INJ 25 MG/ML VIAL IM ONE (13:45)
[2019-03-05] MEDS ORDERED: ONDANSETRON ODT (ER DISP) 8 MG TAB PO ONE (13:58)
[2019-03-06] MEDS ORDERED: ONDANSETRON ODT (ER DISP) 8 MG TAB PO ONE (09:30)
--- NOTE | 2019-03-09 08:00 | DS ---
SUPERVISING PHYSICIAN: Oscar Rivero MD ADMISSION DIAGNOSIS: 1. Syncopal episode, questionable seizure status post recent same level fall significant closed head injury, likely concussion. 2. Significant epistaxis due to recent traumatic facial trauma from a fall with a Rhino Rocket in place in the right naris, showing to be without complications. 3. Urinary tract infection possibly contributing to #1 with cultures pending. 4. Leukocytosis possibly contributed to urinary tract infection and exacerbated by a recent traumatic event, some demargination with the patient being started on Levaquin. 5. Electrolyte imbalance to include hyponatremia most likely chronic with the patient on Lexapro and Trileptal. 6. History of hypercholesterolemia. 7. History of hypertension. 8. History of hypothyroidism on supplementation. 9. History of breast cancer, surgical excision, chemo and radiation treatment. 10. Osteopenia. DISCHARGE DIAGNOSIS: 1. Syncopal episode, questionable seizure status post recent same level fall significant closed head injury, likely concussion. 2. Significant epistaxis due to recent traumatic facial trauma from a fall with a Rhino Rocket in place in the right naris, without complications, with the patient having Rhino Rocket removed without any complications and not showing any return of epistaxis. 3. Urinary tract infection possibly contributing to #1 with final culture results showing Enterococcus species group D with final workup pending with the the patient being discharged on Levaquin. 4. Leukocytosis possibly contributed to urinary tract infection and exacerbated by a recent traumatic event, some demargination with the patient being started on Levaquin. 5. Electrolyte imbalance to include hyponatremia most likely chronic with the patient on Lexapro, Trileptal and hydrochlorothiazide. The patient is being followed by Dr. Mariscal. 6. History of hypercholesterolemia. 7. History of hypertension. 8. History of hypothyroidism on supplementation. 9. History of breast cancer, surgical excision, chemo and radiation treatment. 10. Osteopenia. REASON FOR HOSPITALIZATION: Ms. Womack is an 88 year-old female patient who returned to the Emergency Room this morning complaining of a near syncopal episodes prior to arrival. She had been seen earlier in the Emergency Room after a same-level fall after which she had a significant nosebleed. She was discharged home with a Rhino Rocket placed in the right naris. CT of the head and maxillofacial bone CT were both negative for any significant pathology. It was reported by the grandson that the patient was walking at home and became lightheaded, paused and went to the ground. At one time he noted she was twitching but no dennis tonic or clonic movements were noted. The symptoms were very brief and the patient had some difficulty aroused for a few moments and she was briefly confused and quickly returned back to her baseline normal mental status. The patient denied any significant injuries during this episode and felt she was back to normal but given the recent fall and history of seizures, the family took the patient to the Emergency Room for further evaluation. On admission to the Emergency Room, the patient denied headaches, neck pain, dizziness, shortness of breath, chest pain or abdominal pains. She denied any bleeding from the right naris and had no nausea or vomiting. She had a chest x- ray that showed no significant findings per radiology interpretation. Urinalysis did show that she had a moderate amount of blood with leukocyte esterase, but microscopic revealed 4+ bacteria with 3 to 5 WBCs, therefore a culture was obtained and she was started on Levaquin. The patient does not that she was just recently treated for a urinary tract infection but those records are not available at time of admission. Emergency Room physician requested the patient be placed in observation given the significant nature of the traumatic fall she had prior to this event and the fact that she had a near syncopal episode which he contributed to possibly a vasovagal episode. Her EKG 12-lead was showing normal sinus rhythm with first degree AV block with some nonspecific ST-T wave changes. The patient was found to be stable and will be placed in observation for continuation of treatment. LABORATORY: White count on admission was 13.1, hemoglobin 11, hematocrit 32.6. At discharge, white count was down to 5.9, hemoglobin 9.2, hematocrit 26.7. Differential was without a left shift at discharge. Coagulation studies showed normal PT/PTT. On discharge, sodium was 130, potassium 3.7, BUN 20, creatinine 0.64. Troponin less than 0.02. Normal free T4. Urinalysis showed moderate amount of blood, small amount of leukocyte esterase, 4+ bacterial, 1 to 3 epithelials and 3 to 5 WBCs with cultures pending. RADIOLOGY: She had a CT of the head and per radiologic interpretation showed no acute intracranial abnormalities. There was note of paranasal sinus mucoperiosteal thickening and sinusitis. Please see that report for details. She also had a chest x-ray and per radiologic interpretation of single-view chest showed no acute findings. HOSPITAL COURSE: Ms. Womack was admitted from the Emergency Room for concerns for syncopal episodes. She had previously been in the Emergency Room the same day, went home and supposedly had a syncopal episode after she had a Rhino Rocket placed in her right naris due to epistaxis. It was felt she possibly had a vagal response. She was placed in observation. She showed no return of any kind of vagal response or syncopal episode. She was up ambulating. Her Rhino Rocket was removed without any complications although she had some nausea when she had some drainage. She was started on Levaquin for the urinary tract infection with cultures pending as well as concerns for early sinusitis. She was given Zofran ODT and a shot of Phenergan with resolution of her symptoms. She was felt clinically stable enough to continue with outpatient management. PLAN: Ms. Womack was discharged on 03/05/19 with instructions to call Dr. Mariscal' office to establish followup appointment although she has one scheduled on 03/15/19. She was told to avoid forceful blowing of her nose, not to pick her nose. She was to keep the wound on her knee clean and dry and to followup with Dr. Mariscal for suture removal in 7 to 10 days. She was to resume her previous medications as per prior to hospitalization and return to the hospital if she had any worsening or concerning symptoms. Diet on discharge was regular diet as tolerated. Activity as tolerated. Medications prescribed at discharge include Levaquin 750 mg for 5 days. All other medications prior to hospitalization were continued includin. Citalopram. 2. Oxcarbazepine. 3. Meloxicam. 4. Synthroid. 5. Aspirin. 6. Protonix. 7. Lisinopril/hydrochlorothiazide. DISPOSITION: The patient was discharged home. CONDITION AT DISCHARGE: Stable and improved. #[id number] [facility]
== END 2019-03-05 13:48 | disposition home or self-care (01) ==
LOC: ER 02:50 → MS 04:51
PROVIDERS: ADMIT Nurse Practitioner Family; ATTEND Nurse Practitioner Family
DX: R55 Syncope and collapse (principal); R04.0 Epistaxis; N39.0 Urinary tract infection, site not specified; B96.89 Other specified bacterial agents as the cause of diseases classified elsewhere; D72.829 Elevated white blood cell count, unspecified; E87.1 Hypo-osmolality and hyponatremia; E87.8 Other disorders of electrolyte and fluid balance, not elsewhere classified; E78.00 Pure hypercholesterolemia, unspecified; I10 Essential (primary) hypertension; E03.9 Hypothyroidism, unspecified; M85.88 Other specified disorders of bone density and structure, other site; G40.909 Epilepsy, unspecified, not intractable, without status epilepticus; I44.0 Atrioventricular block, first degree; Z23 Encounter for immunization; Z79.1 Long term (current) use of non-steroidal anti-inflammatories (NSAID); Z79.82 Long term (current) use of aspirin; Z79.890 Hormone replacement therapy; Z79.899 Other long term (current) drug therapy; Z88.0 Allergy status to penicillin; Z85.3 Personal history of malignant neoplasm of breast; Z92.21 Personal history of antineoplastic chemotherapy; Z92.3 Personal history of irradiation; Z90.710 Acquired absence of both cervix and uterus; Z90.49 Acquired absence of other specified parts of digestive tract; Z80.42 Family history of malignant neoplasm of prostate; Z82.49 Family history of ischemic heart disease and other diseases of the circulatory system; Z83.3 Family history of diabetes mellitus
CPT/HCPCS: 96361 ×2; 96365; 96372; 90674; J2550; J7030 ×3; J1956; 80048 ×2; 87086; 36415; 87077; 87186; 81001; 85025 ×2; G0008; 84439; 85610; 84484; 71045; 70450; 94760 ×2; G8978; G8979; G8980; 97162; 99285; 93005; G0378

== ENCOUNTER → 2019-03-16 | Outpatient (CLI) | payer MEDICARE, OTHER | LOC: YCHH 08:52 | PROVIDERS: ATTEND Family Medicine | DX: I10 Essential (primary) hypertension (principal); D64.9 Anemia, unspecified; N39.0 Urinary tract infection, site not specified; R55 Syncope and collapse ==

== ENCOUNTER → 2019-04-05 | Outpatient (CLI) | payer MEDICARE, OTHER | LOC: YCHH 13:39 | PROVIDERS: ATTEND Family Medicine | DX: N39.0 Urinary tract infection, site not specified (principal) ==

== ENCOUNTER → 2019-04-26 | Outpatient (CLI) | payer MEDICARE, OTHER | END | disposition home or self-care (01) | LOC: YCHH 13:22 | PROVIDERS: ATTEND Family Medicine | DX: R79.89 Other specified abnormal findings of blood chemistry (principal); R55 Syncope and collapse ==

== ENCOUNTER → 2019-05-15 | Outpatient (CLI) | payer MEDICARE, OTHER | LOC: YCHH 09:55 | PROVIDERS: ATTEND Family Medicine | DX: R79.89 Other specified abnormal findings of blood chemistry (principal); R55 Syncope and collapse ==

== ENCOUNTER → 2019-06-14 | Outpatient (CLI) | payer MEDICARE, OTHER | LOC: LAB.O 08:37 | PROVIDERS: ATTEND Physician Assistant | DX: L29.9 Pruritus, unspecified (principal) ==

== ENCOUNTER → 2019-09-18 | Outpatient (CLI) | payer MEDICARE, OTHER | LOC: YCHH 10:16 | PROVIDERS: ATTEND Family Medicine | DX: R30.0 Dysuria (principal); R79.89 Other specified abnormal findings of blood chemistry ==

== ENCOUNTER → 2019-09-29 | Outpatient (CLI) | payer MEDICARE, OTHER | LOC: YCHH 10:49 | PROVIDERS: ATTEND Family Medicine | DX: N18.9 Chronic kidney disease, unspecified (principal); E78.5 Hyperlipidemia, unspecified; D64.9 Anemia, unspecified; E03.9 Hypothyroidism, unspecified; K74.60 Unspecified cirrhosis of liver ==

== ENCOUNTER → 2020-01-08 | Outpatient (CLI) | payer MEDICARE, OTHER | LOC: YCHH 09:37 | PROVIDERS: ATTEND Family Medicine | DX: D64.9 Anemia, unspecified (principal); N18.9 Chronic kidney disease, unspecified; N39.0 Urinary tract infection, site not specified ==

== ENCOUNTER → 2020-03-19 | Outpatient (CLI) | payer MEDICARE, OTHER | LOC: YCHH 09:30 | PROVIDERS: ATTEND Family Medicine | DX: D64.9 Anemia, unspecified (principal); K74.60 Unspecified cirrhosis of liver; E11.9 Type 2 diabetes mellitus without complications; N18.9 Chronic kidney disease, unspecified; E03.9 Hypothyroidism, unspecified; E78.5 Hyperlipidemia, unspecified ==

== ENCOUNTER → 2020-07-29 | Outpatient (CLI) | payer MEDICARE, OTHER ==
--- NOTE | 2020-07-30 16:33 | MAM ---
EXAM DESCRIPTION: 3D Diagnostic, Bilateral: Digital Mammography CLINICAL HISTORY: 89 [id number] MASS RIGHT BREAST . Personal history of right breast cancer 2007. Patient does not remember where mass was palpable. Patient cannot palpate a mass today. Second Covid vaccine 3 weeks ago in right remote family history of breast cancer. Menarche age unknown. Childbirth age 29. Postmenopausal age unknown. HRT 5 or more years ago.. Lifetime risk of developing breast cancer (Tyrer-Cuzick model) percentage is not calculated. COMPARISON: Bilateral diagnostic digital mammography with tomosynthesis and bilateral directed breast ultrasound February 2019. Bilateral diagnostic digital breast tomosynthesis and bilateral directed breast ultrasound August 2018. TECHNIQUE: Bilateral LM, CC, and MLO projection full-field images, digital mammographic tomosynthesis technique. Bilateral 2-D digital full-field MLO images. LM, CC, and MLO projections. CAD not available. FINDINGS: The breast parenchymal density pattern is: Heterogeneously dense breast tissue, which may obscure small masses. Multiple bilateral secretory and vascular calcifications. Coarse calcifications and solitary microcalcifications. Stable from the prior study. Architectural distortion lower outer quadrant middle third of right breast at site of prior breast cancer and lumpectomy. No interval change. Stable skin thickening near the site of lumpectomy on the right breast. No nipple retraction. No new focal, stellate mass or density, focal asymmetry , and no suspicious microcalcifications bilaterally. IMPRESSION: Benign exam. BIRAD CATEGORY: 2 BENIGN FINDINGS. RECOMMENDATIONS: FOLLOW UP: Diagnostic digital bilateral mammographic, examination as needed depending on clinical findings. Patient is greater than 85 years which is usual upper age range for mammographic screening, according to the [employer]. Written communication explaining the IMPRESSION and follow-up, will be mailed to the patient and referring health care provider. The FINDINGS and the FOLLOW-UP plan were reviewed in person with the patient after the examination. A negative mammographic report should not delay tissue diagnosis in patients with significant clinical history or physical findings. Extremely dense breast tissue limits the sensitivity of digital mammography. Electronically signed by: Alfred Jones MD 07/30/2020 4:32 PM [facility]
== END ==
LOC: US 14:56
PROVIDERS: ATTEND Family Medicine
DX: N64.4 Mastodynia (principal)
CPT/HCPCS: 77066; G0279

== ENCOUNTER → 2020-07-31 | Outpatient (CLI) | payer MEDICARE, OTHER | LOC: YCHH 08:57 | PROVIDERS: ATTEND Family Medicine | DX: D64.9 Anemia, unspecified (principal); I10 Essential (primary) hypertension; D51.9 Vitamin B12 deficiency anemia, unspecified; E55.9 Vitamin D deficiency, unspecified; E78.5 Hyperlipidemia, unspecified; E03.9 Hypothyroidism, unspecified ==